=== PATIENT | female | born 1950 | race Caucasian/White ===

== ENCOUNTER 2023-01-30 04:07 | Inpatient (IN) ==
[2023-01-30] MEDS ORDERED: SODIUM CHLORIDE 0.9% 1000ML 500 ML IV ONE (04:39)
[2023-01-30 04:59] LABS: Basophils # (auto) 0.09 K/uL (0-0.2); Basophils % (auto) 0.6 %; Eosinophils # (auto) 0.01 K/uL (0-0.50); Eosinophils % (auto) 0.1 %; Hematocrit (blood only) 38.5 % (37.0-47.0); Hemoglobin 12.2 g/dl (12.0-16.0); Immature Granulocytes # (auto) 0.09 K/uL (0.01-0.20); Immature Granulocytes % (auto) 0.6 %; Lymphocytes # (auto) 0.86 K/uL (1.2-3.4); Mean Corpuscular Hemoglobin 23.2 pg (25.0-34.0); Mean Corpuscular Hgb Conc 31.7 g/dL (32.0-36.0); Mean Corpuscular Volume 73.3 fL (80.0-100.0); Mean Platelet Volume 9.9 fL (9.4-12.4); Monocytes # (auto) 1.28 K/uL (0.11-0.59); Neutrophils # (auto) 11.89 K/uL (1.40-6.50); Neutrophils % (auto) 83.7 %; Platelet Count 310 K/uL (130-400); RDW Coefficient of Variation 17.7 % (11.5-14.5); RDW Standard Deviation 43.4 fL (36.4-46.3); Red Blood Count 5.25 M/uL (4.20-5.40); White Blood Count 14.22 K/ul (4.8-10.8)
[2023-01-30 05:06] LABS: Albumin Globulin Ratio 1.3 (0.9-2); Albumin Level 3.9 gm/dl (3.4-5.0); BUN Creatinine Ratio 31.3 (10-20); Bilirubin,Total 0.6 mg/dl (0.2-1.0); Est GFR (African American) 82.8 ml/min; Est GFR (Non-African American) 71.4 ml/min; Globulin 2.9 gm/dl (2.5-4.0); Magnesium 2.1 mg/dl (1.7-2.4); Potassium 4.6 mmol/L (3.5-5.1); Total Protein 6.8 gm/dl (6.0-8.3)
[2023-01-30 05:11] LABS: Troponin I High Sensitivity 15.4 pg/ml (0-14)
--- NOTE | 2023-01-30 05:39 | Emergency Department Note ---
Impression & Plan Pleural effusion on right, DVT (deep venous thrombosis), Chest wall mass, Pulmonary emboli ED Provider Note CHIEF COMPLAINT: Shortness of breath, left arm swelling HISTORY OF PRESENT ILLNESS: This 72-year-old female patient with no significant past medical history presents to the emergency department with complaints of a right chest wall mass, shortness of breath and left arm swelling. The patient states she does not like doctors and does not see them, she does not have a primary care physician and has not seen a doctor in many years. She presents to the because she began to worry and did not feel comfortable enough with her breathing to go to sleep. She denies smoking cigarettes. She has not had a mammogram recently. She states she noticed the mass along the right chest wall several months ago and the left arm swelling just a few days ago. She denies any recent fevers. She states she has not had an appetite and has been losing weight. REVIEW OF SYSTEMS: A review of systems was performed with positives and pertinent negatives listed in the history of present illness. 10 systems were reviewed and are otherwise negative. ALLERGIES: see below MEDICATIONS: see below PMH: see below SOCIAL HISTORY: see below DDx: Breast cancer, metastatic cancer, pneumonia, viral illness, pleural effusion, PE, arterial clot, DVT among others. PHYSICAL EXAM: Vital signs reviewed. General: Chronically ill-appearing, cachectic 72-year-old female, in no significant distress. HEENT: No scleral icterus, PERRLA, neck supple. Atraumatic. Mass noted on the parietal scalp Cardiovascular: Tachycardic but regular, no extra sounds. Pulmonary: Diminished breath sounds on the right, increased work of breathing on nasal cannula oxygen Abdomen: Soft, nontender, nondistended, positive bowel sounds. Musculoskeletal: Atraumatic, left upper extremity peripheral edema, cool to touc h. 6 cm circular protuberant mass on the right anterior ribs above the breast. Left arm is cyanotic appearing, edematous from the elbow to the distal fingers, 2-3+. Thready radial pulse appreciated. Neurologic: Patient awake alert and oriented x 3, speech is clear Skin: Warm, dry, no rash. As above. EMERGENCY DEPARTMENT COURSE/MDM: This patient was evaluated and appeared to be in no significant distress. The patient was resting on nasal cannula oxygen. She does not normally wear oxygen at home. IV access was obtained and laboratory work was drawn. The patient was placed on the media monitor noted to be in a sinus tachycardia. Chest x-ray was performed and reveals a large right pleural effusion. Left arterial Doppler was performed of the upper extremity and reveals no evidence of arterial occlusion, however there is evidence of extensive DVT. CT imaging of the chest reveals a malignant pleural effusion with right chest wall mass and bilateral PEs. Heparin drip was initia dimitri. G external medical records are iven the patient's oxygen requirement, new diagnosis and pleural effusion with shortness of breath, patient's case was discussed with the hospitalist service who will evaluate the patient for admission and further management. MONITORING: An order for cardiac monitoring was placed and the patient is noted to be in a sinus tachycardia at 115 beats per minute. RADIOLOGY: CT imaging of the chest per radiology below. Ultrasound of the left upper extremity, see below EKG: To my interpretation reveals a sinus tachycardia at 103 bpm. Overall low voltage QRS, QTc of 437. No PVC, no PAC. DISPOSITION: Admission I have personally spent 40 minutes of critical care time in the direct management of this patient. This was a life/limb threatening event. This 40 minutes is in excess of all separately billable procedures. 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 Required: No Beliefs That Will Affect Care: None Current Living Situation: Alone Feels Safe at Home: Yes Assistive Devices: None Home Meds Home Medications Medication Instructions Recorded Confirmed No Known Home Medications 01/30/23 01/30/23 Results & Data (ED) Vital Signs Vital Signs - 24 hr 01/30/23 04:18 01/30/23 04:25 01/30/23 04:25 Temperature 36.4 C Temperature Source Oral Pulse Rate 116 H 115 H Pulse Rate from SpO2 Sensor Respiratory Rate 24 Respiratory Effort / Characteristics Spontaneous Labored Blood Pressure 144/94 H Blood Pressure Mean 110 Blood Pressure Position Semi-fowlers Pulse Oximetry 88 L 88 L Oxygen Delivery Method Room Air Nasal Cannula Oxygen Flow Rate 2 Sepsis Recent Fever Within 48 Hours No Sepsis New/Unexplained Change in Mental Status No Sepsis Action Taken by Nursing No Action Required Pulse Oximetry Post Tiitration 95 01/30/23 04:31 01/30/23 04:30 01/30/23 05:00 Temperature Temperature Source Pulse Rate 112 H 105 H Pulse Rate from SpO2 Sensor Respiratory Rate 20 25 H Respiratory Effort / Characteristics Blood Pressure 116/91 127/71 Blood Pressure Mean 99 89 Blood Pressure Position Pulse Oximetry 97 97 95 Oxygen Delivery Method Room Air Oxygen Flow Rate Sepsis Recent Fever Within 48 Hours Sepsis New/Unexplained Change in Mental Status Sepsis Action Taken by Nursing Pulse Oximetry Post Tiitration 01/30/23 05:30 01/30/23 07:28 01/30/23 07:30 Temperature Temperature Source Pulse Rate 96 H Pulse Rate from SpO2 Sensor 91 H Respiratory Rate 28 H Respiratory Effort / Characteristics Blood Pressure 117/80 141/90 H Blood Pressure Mean 92 117 Blood Pressure Position Pulse Oximetry 96 93 Oxygen Delivery Method Nasal Cannula Oxygen Flow Rate 2 Sepsis Recent Fever Within 48 Hours Sepsis New/Unexplained Change in Mental Status Sepsis Action Taken by Nursing Pulse Oximetry Post Tiitration 01/30/23 07:30 01/30/23 08:00 01/30/23 08:00 Temperature Temperature Source Pulse Rate 95 H 86 Pulse Rate from SpO2 Sensor 92 H 86 Respiratory Rate 28 H 21 Respiratory Effort / Characteristics Blood Pressure 130/84 Blood Pressure Mean 96 Blood Pressure Position Pulse Oximetry 92 93 Oxygen Delivery Method Nasal Cannula Nasal Cannula Oxygen Flow Rate 2 2 Sepsis Recent Fever Within 48 Hours Sepsis New/Unexplained Change in Mental Status Sepsis Action Taken by Nursing Pulse Oximetry Post Tiitration 01/30/23 08:31 01/30/23 08:31 01/30/23 09:00 Temperature Temperature Source Pulse Rate 100 H Pulse Rate from SpO2 Sensor 100 H Respiratory Rate 21 Respiratory Effort / Characteristics Blood Pressure 157/97 H 124/85 Blood Pressure Mean 119 97 Blood Pressure Position Pulse Oximetry 93 Oxygen Delivery Method Room Air Oxygen Flow Rate Sepsis Recent Fever Within 48 Hours Sepsis New/Unexplained Change in Mental Status Sepsis Action Taken by Nursing Pulse Oximetry Post Tiitration 01/30/23 09:00 Temperature Temperature Source Pulse Rate 86 Pulse Rate from SpO2 Sensor 87 Respiratory Rate 21 Respiratory Effort / Characteristics Blood Pressure Blood Pressure Mean Blood Pressure Position Pulse Oximetry 94 Oxygen Delivery Method Nasal Cannula Oxygen Flow Rate 2 Sepsis Recent Fever Within 48 Hours Sepsis New/Unexplained Change in Mental Status Sepsis Action Taken by Nursing Pulse Oximetry Post Tiitration Home Medications Current Medication List: was personally reviewed by me Laboratory Data Attestation: I reviewed the patient's lab results. 01/30/23 04:25 01/30/23 04:25 Lab Results 01/30/23 01/30/23 01/30/23 Range/Units 04:25 04:25 04:25 WBC 14.22 H (4.8-10.8) K/ul RBC 5.25 (4.20-5.40) M/uL Hgb 12.2 (12.0-16.0) g/dl Hct 38.5 (37.0-47.0) % MCV 73.3 L (80.0-100.0) fL MCH 23.2 L (25.0-34.0) pg MCHC 31.7 L (32.0-36.0) g/dL RDW Std Deviation 43.4 (36.4-46.3) fL RDW Coeff of Regina 17.7 H (11.5-14.5) % Plt Count 310 (130-400) K/uL MPV 9.9 (9.4-12.4) fL Immature Gran % (Auto) 0.6 % Neut % (Auto) 83.7 % Lymph % (Auto) 6.0 % [place] % (Auto) 9.0 % Eos % (Auto) 0.1 % Baso % (Auto) 0.6 % Neut # (Auto) 11.89 H (1.40-6.50) K/uL Lymph # (Auto) 0.86 L (1.2-3.4) K/uL [place] # (Auto) 1.28 H (0.11-0.59) K/uL Eos # (Auto) 0.01 (0-0.50) K/uL Baso # (Auto) 0.09 (0-0.2) K/uL Immature Gran # (Auto) 0.09 (0.01-0.20) K/uL PT 13.4 H (9.0-12.0) Seconds INR 1.2 H (0.9-1.1) APTT < 20.0 L (21.0-31.0) Seconds PTT Ratio 0.7 Sodium 136 (136-145) mmol/L Potassium 4.6 (3.5-5.1) mmol/L Chloride 96 L (98-107) mmol/L Carbon Dioxide 21 (21-32) mmol/L Anion Gap 19 H (3-11) BUN 26 H (6-23) mg/dl Creatinine 0.83 (0.6-1.2) mg/dl Est Cr Clr Drug Dosing 47.0 ml/min Est GFR ( Amer) 82.8 ml/min Est GFR (Non-Af Amer) 71.4 ml/min BUN/Creatinine Ratio 31.3 H (10-20) Glucose 100 H (70-99(Fasting)) mg/dl Calcium 10.0 (8.6-10.3) mg/dl Magnesium 2.1 (1.7-2.4) mg/dl Total Bilirubin 0.6 (0.2-1.0) mg/dl AST 35 (13-39) U/L ALT 22 (7-52) U/L Alkaline Phosphatase 69 (34-104) U/L Troponin I High Sens 15.4 H (0-14) pg/ml Total Protein 6.8 (6.0-8.3) gm/dl Albumin 3.9 (3.4-5.0) gm/dl Globulin 2.9 (2.5-4.0) gm/dl Albumin/Globulin Ratio 1.3 (0.9-2) SARS-CoV-2, RNA, NAAT (NEGATIVE) 01/30/23 Range/Units 05:06 WBC (4.8-10.8) K/ul RBC (4.20-5.40) M/uL Hgb (12.0-16.0) g/dl Hct (37.0-47.0) % MCV (80.0-100.0) fL MCH (25.0-34.0) pg MCHC (32.0-36.0) g/dL RDW Std Deviation (36.4-46.3) fL RDW Coeff of Regina (11.5-14.5) % Plt Count (130-400) K/uL MPV (9.4-12.4) fL Immature Gran % (Auto) % Neut % (Auto) % Lymph % (Auto) % [place] % (Auto) % Eos % (Auto) % Baso % (Auto) % Neut # (Auto) (1.40-6.50) K/uL Lymph # (Auto) (1.2-3.4) K/uL [place] # (Auto) (0.11-0.59) K/uL Eos # (Auto) (0-0.50) K/uL Baso # (Auto) (0-0.2) K/uL Immature Gran # (Auto) (0.01-0.20) K/uL PT (9.0-12.0) Seconds INR (0.9-1.1) APTT (21.0-31.0) Seconds PTT Ratio Sodium (136-145) mmol/L Potassium (3.5-5.1) mmol/L Chloride (98-107) mmol/L Carbon Dioxide (21-32) mmol/L Anion Gap (3-11) BUN (6-23) mg/dl Creatinine (0.6-1.2) mg/dl Est Cr Clr Drug Dosing ml/min Est GFR ( Amer) ml/min Est GFR (Non-Af Amer) ml/min BUN/Creatinine Ratio (10-20) Glucose (70-99(Fasting)) mg/dl Calcium (8.6-10.3) mg/dl Magnesium (1.7-2.4) mg/dl Total Bilirubin (0.2-1.0) mg/dl AST (13-39) U/L ALT (7-52) U/L Alkaline Phosphatase (34-104) U/L Troponin I High Sens (0-14) pg/ml Total Protein (6.0-8.3) gm/dl Albumin (3.4-5.0) gm/dl Globulin (2.5-4.0) gm/dl Albumin/Globulin Ratio (0.9-2) SARS-CoV-2, RNA, NAAT NEGATIVE (NEGATIVE) Administered Medications Sodium Chloride (Nss 1000ml) 1,000 mls @ 125 mls/hr IV .Q8H LEA Stop: 03/01/23 04:44 Last Infusion: 01/30/23 15:05 Dose: 0 mls/hr Documented By: Admin: 01/30/23 14:20 Dose: 125 mls/hr Documented By: Infusion: 01/30/23 14:20 Dose: 125 mls/hr Documented By: Admin: 01/30/23 07:32 Dose: 125 mls/hr Documented By: EARNEST Heparin Sodium/Dextrose (Heparin Sodium/Dextrose) 25,000 units in 500 mls @ 17 mls/hr IV .Q24H LEA; Protocol Stop: 02/28/23 15:14 Last Admin: 01/30/23 17:28 Dose: 600 units/hr, 12 mls/hr Documented By: NANNETTE Co-signed By: RAFFAELE Discontinued Medications Heparin Sodium (Porcine) (Heparin Sod (Porcine) 1000 Unit/Ml) 1 units IV NOW ONE Stop: 01/30/23 07:17 Last Admin: 01/30/23 07:36 Dose: 4,000 units Documented By: EARNEST Co-signed By: ANDREWS Heparin Sodium/Dextrose (Heparin Iv Adult Wt-Based Standard With Bolus Protocol) 1 each IV NOW STA; Protocol Stop: 01/30/23 07:02 Last Admin: 01/30/23 07:32 Dose: 1 each Documented By: EARNEST Sodium Chloride (Nss 1000ml) 500 mls @ 999 mls/hr IV .Q31M ONE Stop: 01/30/23 05:09 Last Infusion: 01/30/23 07:27 Dose: 0 mls/hr Documented By: Admin: 01/30/23 05:01 Dose: 999 mls/hr Documented By: XENA Heparin Sodium/Dextrose (Heparin Sodium/Dextrose) 25,000 units in 500 mls @ 17 mls/hr IV .Q24H LEA; Protocol Stop: 03/01/23 07:29 Last Titration: 01/30/23 17:28 Dose: 0 units/hr, 0 mls/hr Documented By: NANNETTE Co-signed By: RAFFAELE Titration: 01/30/23 15:23 Dose: 0 units/hr, 0 mls/hr Documented By: NANNETTE Co-signed By: ANTHONY Admin: 01/30/23 07:36 Dose: 850 units/hr, 17 mls/hr Documented By: EARNEST Co-signed By: ANDREWS Ioversol (Ioversol 350 Mg 125ml Prefilled Syringe) 125 ml IV ONCE ONE Stop: 01/30/23 06:02 Last Admin: 01/30/23 06:01 Dose: 116 ml Documented By: ARVIND Imaging Data Radiologist's Impression: Chest X-Ray 01/30/23 04:31 XR chest 1V portable CLINICAL HISTORY: Dyspnea. COMPARISON STUDY: No previous studies for comparison. FINDINGS: There is complete opacification of the right hemithorax with as sociated leftward deviation of the mediastinal structures. No consolidation within the left lung is present. There is no left pleural effusion. No pneumothorax is present. IMPRESSION: Complete opacification of the right hemithorax with associated leftward deviation of mediastinal structures. The findings suggest a large right pleural effusion with right lung atelectasis. ACT 112: Negative or not required by law. Electronically signed by: Mahendra Borjas M.D. 01/30/2023 7:33 AM Chest CTA 01/30/23 04:38 CT ANGIOGRAPHY OF THE CHEST, PULMONARY EMBOLUS PROTOCOL CLINICAL HISTORY: Shortness of breath. Evaluate for pulmonary embolus. COMPARISON STUDY: Chest radiograph performed earlier today. TECHNIQUE: Following IV administration of 116 mL of Optiray, helical axial images of the chest were obtained utilizing the pulmonary embolus protocol. Maximal intensity projections and sagittal and coronal reformats were viewed on an independent 3D workstation. IV contrast was administered without complication. Automated exposure control was utilized for the study. A dose lowering technique was utilized adhering to the principles of ALARA. CT DOSE: 265.75 mGy.cm FINDINGS: Note is made of several segmental pulmonary emboli within the left lung. This exam is compromised by respiratory motion. No central pulmonary emboli are identified. Note is made of a large right pleural effusion which occupies the majority of the right hemithorax. There is associated right lung collapse and leftward deviation of mediastinal structures. A rind of enhancing right pleural soft tissue is present. Conglomerate enhancing soft tissue extends through the right anterior chest wall. This conglomerate mass measures approximately 9.5 x 5.3 cm and encases the bilateral internal mammary arteries. Enhancing soft tissue extends into several right-sided neural foramen. There is no associated bone destruction. Note is also made of extensive lower cervical, thoracic and upper abdominal lymphadenopathy. Index left supraclavicular node on image 205 of 221 measures 2.3 x 1.4 cm. A right retropectoral node on image 174 measures 3.1 x 2.2 cm. Right axillary node on image 154 measures 2.7 x 1.8 cm. Left para-aortic lymph node adjacent to the proximal abdominal aorta on image 20 measures 2.4 x 1.6 cm. Retrocrural/periaortic conglomerate adenopathy is also present. No consolidation within the left lung is present. There are no suspicious left lung nodules. No suspicious osseous lesions are identified. IMPRESSION: 1. Several segmental pulmonary emboli within the left lung. 2. Very large right pleural effusion which occupies the majority of the right hemithorax with associated right lung collapse and leftward deviation of mediastinal structures. Rind of enhancing right pleural soft tissue consistent with a neoplastic process with malignant effusion. Enhancing infiltrative soft tissue extends through the right anterior chest wall. Extensive lower cervical, thoracic and upper mediastinal lymphadenopathy. The findings represent a neoplastic process and lymphoma is a primary consideration. However, other etiologies such as metastatic lung cancer, metastatic disease of unknown primary or less likely mesothelioma can't be excluded. ACT 112: Positive. There are findings on this exam that require communication between the performing entity and the patient following Patient Test Result Information Act ([place] Act 112) guidelines. Electronically signed by: Mahendra Borjas M.D. 01/30/2023 6:55 AM Duplex Scan Upper Extremity Artery 01/30/23 04:38 LEFT UPPER EXTREMITY DOPPLER ULTRASOUND CLINICAL HISTORY: cool, swollen, ? arterial occlusion COMPARISON STUDY: No previous studies for comparison. TECHNIQUE: Sonography of the arterial system of the left upper extremity was performed. FINDINGS: Pathologic left supraclavicular lymphadenopathy is incidentally noted. Index node measures 2.7 x 2.3 x 1.3 cm. Incidental note is also made of extensive deep venous thrombus within the left internal jugular, subclavian, brachial and radial veins. No elevated velocities within the arterial systems of the left upper extremity are noted. The arteries are patent within the left upper extremity. Left upper extremity edema is present. IMPRESSION: 1. Patent left upper extremity arteries. No elevated velocities. 2. Extensive deep venous thrombus within the left internal jugular, subclavian, brachial and radial veins. 3. Pathologic left supraclavicular lymphadenopathy. This is consistent with a neoplastic process and could reflect lymphoma or metastatic disease. ACT 112: Negative or not required by law. Electronically signed by: Mahendra Borjas M.D. 01/30/2023 7:10 AM Discharge Plan Visit Data Chief Complaint: Shortness of Breath/Dyspnea Stated Complaint: Swelling L Arm, SOB ED Provider: Traci Woodard Discharge Problem: Pleural effusion on right, DVT (deep venous thrombosis), Chest wall mass, Pulmonary emboli Patient Disposition: Admitted As Inpatient Discharge Instructions Interventions: ED Discharge Assessment Last Done: 01/30/23 12:57
[2023-01-30] MEDS ORDERED: IOVERSOL 350 MG 125mL Prefilled Syringe IV ONE (06:01)
--- NOTE | 2023-01-30 06:57 | CT Scan Report ---
CT ANGIOGRAPHY OF THE CHEST, PULMONARY EMBOLUS PROTOCOL CLINICAL HISTORY: Shortness of breath. Evaluate for pulmonary embolus. COMPARISON STUDY: Chest radiograph performed earlier today. TECHNIQUE: Following IV administration of 116 mL of Optiray, helical axial images of the chest were o btained utilizing the pulmonary embolus protocol. Maximal intensity projections and sagittal and cor onal reformats were viewed on an independent 3D workstation. IV contrast was administered without co mplication. Automated exposure control was utilized for the study. A dose lowering technique was ut ilized adhering to the principles of ALARA. CT DOSE: 265.75 mGy.cm FINDINGS: Note is made of several segmental pulmonary emboli within the left lung. This exam is comp romised by respiratory motion. No central pulmonary emboli are identified. Note is made of a large ri ght pleural effusion which occupies the majority of the right hemithorax. There is associated right l rajesh collapse and leftward deviation of mediastinal structures. A rind of enhancing right pleural soft tissue is present. Conglomerate enhancing soft tissue extends through the right anterior chest wall. This conglomerate mass measures approximately 9.5 x 5.3 cm and encases the bilateral internal mammar y arteries. Enhancing soft tissue extends into several right-sided neural foramen. There is no associ ated bone destruction. Note is also made of extensive lower cervical, thoracic and upper abdominal ly mphadenopathy. Index left supraclavicular node on image 205 of 221 measures 2.3 x 1.4 cm. A right ret ropectoral node on image 174 measures 3.1 x 2.2 cm. Right axillary node on image 154 measures 2.7 x 1 .8 cm. Left para-aortic lymph node adjacent to the proximal abdominal aorta on image 20 measures 2.4 x 1.6 cm. Retrocrural/periaortic conglomerate adenopathy is also present. No consolidation within the left lung is present. There are no suspicious left lung nodules. No suspicious osseous lesions are i dentified. IMPRESSION: 1. Several segmental pulmonary emboli within the left lung. 2. Very large right pleural effusion which occupies the majority of the right hemithorax with associa dimitri right lung collapse and leftward deviation of mediastinal structures. Rind of enhancing right pleural soft tissue consistent with a neoplastic process with malignant effus ion. Enhancing infiltrative soft tissue extends through the right anterior chest wall. Extensive lowe r cervical, thoracic and upper mediastinal lymphadenopathy. The findings represent a neoplastic proce ss and lymphoma is a primary consideration. However, other etiologies such as metastatic lung cancer, metastatic disease of unknown primary or less likely mesothelioma can't be excluded. ACT 112: Positive. There are findings on this exam that require communication between the performing entity and the patient following Patient Test Result Information Act ([place] Act 112) guidelines. Electronically signed by: Mahendra Borjas M.D. 01/30/2023 6:55 AM
[2023-01-30] MEDS ORDERED: Heparin IV Adult Wt-Based Standard WITH Bolus Protocol IV STA (07:01)
--- NOTE | 2023-01-30 07:11 | Ultrasound Report ---
LEFT UPPER EXTREMITY DOPPLER ULTRASOUND CLINICAL HISTORY: cool, swollen, ? arterial occlusion COMPARISON STUDY: No previous studies for comparison. TECHNIQUE: Sonography of the arterial system of the left upper extremity was performed. FINDINGS: Pathologic left supraclavicular lymphadenopathy is incidentally noted. Index node measures 2.7 x 2.3 x 1.3 cm. Incidental note is also made of extensive deep venous thrombus within the left in ternal jugular, subclavian, brachial and radial veins. No elevated velocities within the arterial sys tems of the left upper extremity are noted. The arteries are patent within the left upper extremity. Left upper extremity edema is present. IMPRESSION: 1. Patent left upper extremity arteries. No elevated velocities. 2. Extensive deep venous thrombus within the left internal jugular, subclavian, brachial and radial v eins. 3. Pathologic left supraclavicular lymphadenopathy. This is consistent with a neoplastic process and could reflect lymphoma or metastatic disease. ACT 112: Negative or not required by law. Electronically signed by: Mahendra Borjas M.D. 01/30/2023 7:10 AM
[2023-01-30] MEDS ORDERED: HEPARIN SOD (PORCINE) 1000 UNIT/ML IV ONE (07:16)
[2023-01-30 07:29] LABS: INR 1.2 (0.9-1.1); Partial Thromboplastin Ratio 0.7; Prothrombin Time 13.4 Seconds (9.0-12.0)
[2023-01-30] MEDS ORDERED: HEPARIN SODIUM/DEXTROSE 25,000 UNITS/500 ML BAG IV SCH (07:30)
[2023-01-30] MEDS: SODIUM CHLORIDE 0.9% 1000ML 1,000 ML IV SCH ×3 (07:32→19:24)
--- NOTE | 2023-01-30 07:35 | XRay Report ---
XR chest 1V portable CLINICAL HISTORY: Dyspnea. COMPARISON STUDY: No previous studies for comparison. FINDINGS: There is complete opacification of the right hemithorax with associated leftward deviation of the mediastinal structures. No consolidation within the left lung is present. There is no left ple ural effusion. No pneumothorax is present. IMPRESSION: Complete opacification of the right hemithorax with associated leftward deviation of med iastinal structures. The findings suggest a large right pleural effusion with right lung atelectasis. ACT 112: Negative or not required by law. Electronically signed by: Mahendra Borjas M.D. 01/30/2023 7:33 AM
[2023-01-30 07:41] LABS: Partial Thromboplastin Time < 20.0 Seconds (21.0-31.0)
--- NOTE | 2023-01-30 09:00 | History & Physical Report ---
Date of Service January 30, 2023 Assessment & Plan (1) Shortness of breath: (2) Pleural effusion on right: (3) DVT (deep venous thrombosis): (4) Chest wall mass: (5) Pulmonary emboli: (6) Elevated troponin: (7) Constipation: Plan 1) Shortness of breath: >2 weeks duration, progressive. CXR and Chest CT on admission show significant right sided pleural effusion with left shift of mediastinal structures. Per radiology, effusion likely malignancy-related. CT also showed right chest wall mass, several left sided PEs, and significant pathologic lymphadenopathy. Per radiology, lymphoma most likely but mets from other primary cancer vs mesothelioma cannot be ruled out. Concern for pneumonia low at this time given patient's lack of fever. -Pt on high flow oxygen via NC -Heparin drip started at -Pulmonology consulted, thoracentesis to be done tomorrow -US guided biopsy to be performed by IR tomorrow 2) Pleural effusion on right: per radiology, likely malignancy related -Pulm consulted, thoracentesis to be performed tomorrow 3) DVT in left arm: Venous Doppler in ED showed extensive thrombus within the left internal jugular, subclavian, brachial and radial veins. -Heparin started as above 4) Chest wall mass: noted on physical exam, CXR, and CT. Per radiology, likely malignant. -As above 5) Pulmonary emboli: Left sided pulmonary emboli noted on CT -Heparin started as above -Oxygen started as above 6) Elevated troponin: Patient had slightly elevated troponin (15.4) in ED. Demand ischemia vs PE vs ID. EKG showed sinus tach with low voltage QRS but could not rule out anterior infarct of any age. -Repeat trop. today 17.7 7) Constipation: Patient has not had a "normal" bowel movement in 2 weeks. Reports small volumes of loose stool consistent with overflow. Constipation vs obstruction. No abdominal pain or distension is reassuring for obstruction, but given patient's family history of colon cancer, lack of prior colonoscopies, and current unidentified malignancy, concern remains. -Miralax ordered -If patient does not have a bowel movement, consider KUB or CT abd to evaluate for obstruction -Recommend outpatient colonoscopy History of Present Illness Chief Complaint: Shortness of Breath Primary Care Provider: [facility] PCP Mary is a 72 year old woman without regular medical care who presented to the ED last night with concerns of shortness of breath and left arm swelling. She first noticed the shortness of breath several weeks ago in association with a new mass/swelling on her right anterior chest. Her shortness of breath worsened over the last few weeks. On Sunday she first noticed left arm and hand swelling. After two days of persistent swelling and worsening shortness of breath, she came to the ED. The shortness of breath is worst with activity. It is not associated with any chest pain, chest pressure. The mass on her chest is not painful. She thinks that it has been increasing in size, but she is not sure. The swelling of her left arm and hand is only painful when she moves or bends it. She has not had any fevers, aches, or chills. She has had recent unintentional weight loss. She is unsure how much weight as she has not weighed herself, but she did notice her clothes have become too loose. She has had poor appetite. She has not had a "normal" bowel movement in close to two weeks. She describes occasional small amounts of loose stool, but no large volumes. She has a remote smoking history (quit 15-20 years ago) of <1/2 a pack per day. She has no known health conditions and takes no medications aside from vitamin D and fish oil supplements, but says that she does not regularly see any doctors and cannot remember the last time she received any medical treatment. She has never been treated by the ED or been hospitalized before. She has a relevant family history of colon cancer in her sister, diagnosed at age 65. She has never had a colonoscopy. Home Medications Medication Instructions Recorded Confirmed Type No Known Home Medications 01/30/23 01/30/23 History Past Med/Surg History Medical History (Updated 01/30/23 @ 11:38 by Jessica Root) Pleural effusion on right Family History Sister Cancer Social History Smoking Status: Former smoker Preferred Language: Khmer Feels Safe at Home: Yes Review of Systems Review of Systems: Reviewed and negative except as stated in HPI Physical Exam Physical Exam: General: Chronically ill-appearing, cachectic 72-year-old female, in no significant distress. HEENT: No scleral icterus, PERRLA, neck supple. Atraumatic. Cardiovascular: Tachycardic but regular, no extra sounds. No pedal edema, no calf tenderness. Pulmonary: Diminished breath sounds on the right, increased work of breathing on nasal cannula oxygen Abdomen: Soft, nontender, nondistended, positive bowel sounds. Musculoskeletal: Atraumatic, no pedal edema. 6 cm nontender circular protuberant mass on the right anterior ribs above the breast. Left arm is cyanotic appearing, edematous from the elbow to the distal fingers, 2-3+.Radial pulse appreciated. Neurologic: Patient awake alert and oriented x 3, speech is clear Skin: Warm, dry, no rash Results & Data Results & Data Vital Signs (Past 12 Hours) Vital Signs Temp Pulse Resp BP Pulse Ox O2 Del Method O2 Flow Rate 01/30/23 08:31 100 H 21 93 Room Air 01/30/23 08:31 157/97 H 01/30/23 08:00 86 21 93 Nasal Cannula 2 01/30/23 08:00 130/84 01/30/23 07:30 95 H 28 H 92 Nasal Cannula 2 01/30/23 07:30 141/90 H 01/30/23 07:28 93 Nasal Cannula 2 01/30/23 05:30 96 H 28 H 117/80 96 01/30/23 05:00 105 H 25 H 127/71 95 01/30/23 04:30 112 H 20 116/91 97 01/30/23 04:31 97 Room Air 01/30/23 04:25 88 L Nasal Cannula 2 01/30/23 04:25 36.4 C 115 H 24 144/94 H 88 L Room Air 01/30/23 04:18 116 H Code Status & VTE Plan Code Status Full Code. Of note, patient expressed strong desire not to remain intubated and ventilated for longer than two weeks. Supervising Physician Co-Signing Physician Notes I personally examined the patient and verified all perera points of history and exam, discussed case, and agree with decision making with Jose Root MS4, and Dr Salo Vallecillo of [email or web address] by the time I see her with supportive care. Appreciate pulmonary input. Vitals noted, in general she is awake and alert pleasant no distress. HEENT normocephalic atraumatic mucous membranes moist. Breathing unlabored no accessory muscle use good effort. Skin shows no rashes no pallor or icterus. CT scanboth report and images reviewed, chest x-ray noted, labs noted Doppler noted presumed metastatic malignancy with subsequent effusion and venous thromboembolic diseasedyspnea/hypoxia/respiratory failure appears to be really due to the enormous pleural effusion collapsing the entirety of her right lung. She has small PEsbut I really doubt there a major player in the situation. Appreciate pulmonary input and anticipate thoracentesis. Agree with biopsy of chest wall mass as well as thoracentesis cytology. Discussed with patient that depending on what type of cancer this turns out to be, treatment options may be quite broad and available. Heparin drip for now given VTE but also need for proceduresanticipate transition to DOAC once procedures are done. Will need to be set up with PCP as well as pulmonary and oncology. Otherwise as above Resident Activity Tracking Resident Involvement: Resident Care Provided Care Provided: Adult Hospital Medicine
[2023-01-30] MEDS ORDERED: POLYETHYLENE (MIRALAX) 17 GM PACK PO PRN (09:01)
[2023-01-30] MEDS ORDERED: ACETAMINOPHEN 325 MG TAB PO PRN (09:01)
[2023-01-30] MEDS ORDERED: ONDANSETRON INJ 2 MG/ML 2 ML VIAL IV PRN (09:01)
--- NOTE | 2023-01-30 11:28 | Pulmonary Consultation ---
Patint seen and examined. Agree with below assessment and plan. Ms. Phan is a 72 F who has not seen a physician in recent memory who presents to the ED on 01/30/2023 with a 2-4 week hx of progressive dyspnea with constitutional symptoms and an enlarging right chest wall mass. Admissions CT scan demonstrated scattered subsegmenal PEs with a right UE DVT, a 10 cm right chest wall mass and complete opacification of the right hemithorax with associated lung atelectasis. Clinically she is breathing comfortably on 2L nc oxygen. She appears cachetic with temporal wasting. She says that she has no family and lives alone. Plan: -- Obtain echo, heparin gtt -- US guided biopsy of mass / supraclavicular node -- Plan for diagnostic / therapeutic right thoracentesis -- Oncology and palliative care consults We will follow with you. Thank you for the consult Date of Consultation January 30, 2023 Assessment & Plan (1) Pleural effusion on right: (2) Shortness of breath: (3) Pulmonary emboli: (4) DVT (deep venous thrombosis): (5) Chest wall mass: Plan IMPRESSION: 72-year-old female presenting to the emergency department with shortness of breath and hypoxia requiring 2 L nasal cannula who was found to have a large RIGHT-sided pleural effusion with concerns for infiltrative RIGHT- sided chest wall mass, pulmonary emboli, and extensive LEFT upper extremity DVT. RECOMMENDATIONS: 1. RIGHT-sided pleural effusion - Concerning for malignant pleural effusion in the setting of new RIGHT-sided chest wall mass. With compression of the RIGHT- sided lung and associated shortness of breath. Thankfully, the patient is only requiring 2 L nasal cannula at this time and does not appear to be hemodynamically unstable at this point. Patient would likely benefit from diagnostic and therapeutic thoracentesis to evaluate pleural fluid which may provide staging given our concern for primary source of malignancy. This was reviewed with the patient. She will need to be off of the heparin drip for 2 hours prior to intervention. Pleural fluid will be sent for pathology as well as cytology and Gram staining. There may be benefit to Pleurx catheter in the patient's future depending on reaccumulation after thoracentesis. This will be reviewed with the patient is a later time pending responsiveness to thoracentesis. 2. Shortness of breath - Likely multifactorial related to the patient's large RIGHT-sided pleural effusion as well as associated LEFT-sided pulmonary emboli. Again, thankfully, the patient is not severely symptomatic at this point. We will perform thoracentesis as discussed above and assess patient's responsiveness moving forward. 3. Pulmonary emboli - Difficult to assess the RIGHT-sided lung structure secondary to large effusion. Small subsegmental PEs appreciated in the LEFT- sided lung field. CT evaluation demonstrates concerns for possible cardiac strain. With the associated bump in her troponin, will order formal echocardiogram for evaluation of degree of RIGHT-sided heart strain. Agree with heparin drip at this time. 4. DVT - Patient with extensive DVT of the LEFT upper extremity. Likely related to the patient's underlying coagulopathy with presumed malignancy. 5. Chest wall mass - With infiltrative component to the RIGHT-sided anterior chest wall. Patient would benefit from core biopsy for definitive diagnosis. This, in combination with pleural cytology/pathology will help for staging with the patient moving forward. Would consult oncology sooner rather than later. Given the patient's circumstances and lack of support as well as need for goals of care decision making moving forward, engagement with palliative care would likely be helpful for this patient as well. Thank you for allowing us to participate in the care of this patient. We will continue to follow along during her hospitalization. History of Present Illness Reason for Consultation: Pleural Effusion Requesting Physician: Dr. Leong History of Present Illness Patient is a 72-year-old female who does not undergo routine medical care who presented to the emergency department overnight with increasing shortness of breath over the last few days. The patient notes that she had experienced a mass to the RIGHT upper chest wall which has been increased in size over the last few weeks. She denies any pain or discomfort in this area. Additionally, she has been noticing progressive shortness of breath. She developed swelling to the LEFT upper extremity which eventually prompted her visit to the emergency department. She was noted to have an extensive LEFT upper extremity DVT as well as multiple subsegmental pulmonary emboli, a large RIGHT-sided pleural effusion, and concerns for erosive chest mass on the RIGHT-sided chest wall. She was started on a heparin drip pulmonary medicine was consulted for evaluation of pleural effusion. Upon evaluation in the emergency department, the patient is awake, alert, and oriented. She denies routine medical care and is unable to quantify the last time she is seen a provider. She states that she lives alone and previously had her sister who within the last few years. She denies any family locally. Patient reports that she has had a decreased appetite and subjective loss of weight recently. She denies any other beta symptoms. She reports no personal history of malignancy. Her sister did pass away from colon cancer. She reports that she had a transient history of smoking several years ago and is otherwise a non-smoker. Other than shortness of breath, she offers no complaints of pain or other concerns at this time. Home Medications Medication Instructions Recorded Confirmed Type No Known Home Medications 01/30/23 01/30/23 History Patient History Medical History (Updated 01/30/23 @ 11:23 by David Madsen PA-C) Pleural effusion on right Family History Sister Cancer Social History Smoking Status: Former smoker Preferred Language: Syriac Feels Safe at Home: Yes Review of Systems Review of Systems: A complete 10 point review of systems was reviewed with the patient with pertinent positives and negatives as per history of present illness. All else were negative. Physical Exam Physical Exam: VITAL SIGNS - Vital signs and nursing notes were reviewed. GENERAL - 72-year-old female appearing her stated age who is in no acute distress. Communicates well with provider and answers questions appropriately. SKIN - Without rashes. NOSE - Midline and without cyanosis. No epistaxis or purulent drainage noted. MOUTH/OROPHARYNX - Without perioral cyanosis. NECK - Neck with FROM. Supple to palpation. No palpable lymphadenopathy noted. LUNGS - Chest wall evaluation demonstrates a large, ~8cm mass to the RIGHT upper chest wall. Nontender to palpation. Nonmobile. No erythema or induration noted. Auscultation reveals absent breath sounds on the RIGHT with clear breath sounds without wheezes, rales, or rhonchi appreciated on the LEFT. CARDIAC - RRR with S1/S2. No murmur, rubs, or gallops appreciated. ABDOMEN - Abdominal inspection demonstrates a flat abdomen. BS normoactive all four quadrants. No tenderness, palpable masses, or ascites noted. EXTREMITIES - Moderate edema noted to the LEFT upper extremity. No peripheral cyanosis. No pretibial edema present. +3/5 radial palpated throughout. PSYCH - A&Ox3 and cooperates fully with examiner. Pt is very pleasant and interacts well with examiner. Results & Data Results & Data Vital Signs (Past 12 Hours) Vital Signs Temp Pulse Resp BP Pulse Ox O2 Del Method O2 Flow Rate 01/30/23 10:30 89 23 93 Nasal Cannula 2 01/30/23 10:30 126/78 01/30/23 10:00 90 24 93 Nasal Cannula 2 01/30/23 10:00 130/84 01/30/23 09:30 92 H 23 95 Nasal Cannula 2 01/30/23 09:30 147/91 H 01/30/23 09:00 86 21 94 Nasal Cannula 2 01/30/23 09:00 124/85 01/30/23 08:31 100 H 21 93 Room Air 01/30/23 08:31 157/97 H 01/30/23 08:00 86 21 93 Nasal Cannula 2 01/30/23 08:00 130/84 01/30/23 07:30 95 H 28 H 92 Nasal Cannula 2 01/30/23 07:30 141/90 H 01/30/23 07:28 93 Nasal Cannula 2 01/30/23 05:30 96 H 28 H 117/80 96 01/30/23 05:00 105 H 25 H 127/71 95 01/30/23 04:30 112 H 20 116/91 97 01/30/23 04:31 97 Room Air 01/30/23 04:25 88 L Nasal Cannula 2 01/30/23 04:25 36.4 C 115 H 24 144/94 H 88 L Room Air 01/30/23 04:18 116 H PG Care Time/CCT Total # of Minutes Spent Total Time Spent with Patient: Total time spent is greater than 50% in coordination of care (as documented) at patient's floor/unit and/or counseling patient: Coding Level of Care Code 58720 INT INP/OBS CARE 3/75MIN Diagnoses Pleural effusion on right J90 Shortness of breath R06.02 Pulmonary emboli I26.99 DVT (deep venous thrombosis) I82.409 Chest wall mass R22.2
[2023-01-30 15:07] LABS: Partial Thromboplastin Ratio > 4.9
[2023-01-30 15:22] LABS: Partial Thromboplastin Time > 139.0 Seconds (21.0-31.0)
[2023-01-30 17:12] LABS: Partial Thromboplastin Ratio 2.7
[2023-01-30 17:17] LABS: Partial Thromboplastin Time 75.8 Seconds (21.0-31.0)
--- NOTE | 2023-01-30 17:23 | Billing Data ---
Date of Service January 30, 2023 Coding Level of Care Code 36981 INT INP/OBS CARE
[2023-01-30] MEDS: HEPARIN SODIUM/DEXTROSE 25,000 UNITS/500 ML BAG IV SCH (17:28)
--- NOTE | 2023-01-30 17:53 | XCELERA ---
[id number]
[2023-01-30 23:49] LABS: Partial Thromboplastin Ratio 1.6
[2023-01-31 00:20] LABS: Partial Thromboplastin Time 44.7 Seconds (21.0-31.0)
[2023-01-31] MEDS: SODIUM CHLORIDE 0.9% 1000ML 1,000 ML IV SCH (03:03)
[2023-01-31 05:21] LABS: Appearance Urine Clear (Clear); Bacteria Urine Automated Negative (Negative); Bilirubin Urine Negative (Negative); Blood Urine Trace (Negative); Color Urine Yellow; Epithelial Cell Urine Auto 0-5 /lpf (0-5); Glucose Urine UA Negative (Negative); Ketones Urine 1+ (Negative); Leukocyte Esterase Urine Negative (Negative); Nitrite Urine Negative (Negative); Protein Urine Trace (Negative); Specific Gravity Urine > 1.045 (1.000-1.030); Urobilinogen Urine Negative (Negative); pH Urine 5.5 (4.5-7.5)
[2023-01-31 07:10] LABS: Basophils # (auto) 0.08 K/uL (0-0.2); Basophils % (auto) 0.8 %; Eosinophils # (auto) 0.08 K/uL (0-0.50); Eosinophils % (auto) 0.8 %; Hematocrit (blood only) 36.4 % (37.0-47.0); Hemoglobin 11.1 g/dl (12.0-16.0); Immature Granulocytes # (auto) 0.05 K/uL (0.01-0.20); Immature Granulocytes % (auto) 0.5 %; Lymphocytes # (auto) 0.53 K/uL (1.2-3.4); Lymphocytes % (auto) 5.4 %; Mean Corpuscular Hemoglobin 23.2 pg (25.0-34.0); Mean Corpuscular Hgb Conc 30.5 g/dL (32.0-36.0); Mean Corpuscular Volume 76.2 fL (80.0-100.0); Mean Platelet Volume 9.8 fL (9.4-12.4); Monocytes # (auto) 0.84 K/uL (0.11-0.59); Monocytes % (auto) 8.5 %; Neutrophils # (auto) 8.32 K/uL (1.40-6.50); Platelet Count 264 K/uL (130-400); RDW Coefficient of Variation 17.4 % (11.5-14.5); RDW Standard Deviation 45.8 fL (36.4-46.3); Red Blood Count 4.78 M/uL (4.20-5.40)
[2023-01-31 07:21] LABS: BUN Creatinine Ratio 20.9 (10-20); Calcium 8.6 mg/dl (8.6-10.3); Chol HDL Ratio 4.2 (0-5); Creatinine Clr Calc Pharmacy 58.2 ml/min; Est GFR (African American) 103.2 ml/min; Est GFR (Non-African American) 89.1 ml/min; Potassium 3.9 mmol/L (3.5-5.1)
--- NOTE | 2023-01-31 07:25 | Consultation ---
Date of Consultation January 31, 2023 Assessment & Plan (1) Chest wall mass: Rapid onset anterior chest wall mass in a patient with a remote history of smoking, mild family history of colon cancer, but no particular toxic exposures. She does seem to describe this is occurring over a less than 2-month period. Aggressive process in a patient with poor performance status, difficult prognosis but histologic definition will certainly be important to help frame our prognostication and discussion as to the options and potential efficacy (or unfortunately perhaps lack thereof) of therapeutic intervention. If this were a lymphoma, small cell lung cancer, or breast cancer there might be some expectation of response to systemic therapy though even in those more "treatable" malignancies the degree of tumor burden and the negative impact upon her overall functionality are concerning for her ability to truly tolerate aggressively dosed treatment. 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 Heparin is certainly an appropriate initial intervention to allow flexibility for interruption for needed biopsies/thoracentesis. Anticipate indefinite need for anticoagulation Plan Very aggressive malignant process. Will be important to at least try to define histologically but depending on that histology and given her poor performance status we may have limited practical ability to intervene beyond palliative intervention. Radiation therapy may become a consideration. Await cytology from potential thoracentesis to determine if we need to pursue a more formal core biopsy of the lung mass. She does not have specific neurologic symptomatology but MRI of the brain will likely be worthwhile especially if we diagnose a primary lung malignancy Anticoagulation obviously indicated Very difficult social circumstances, social work referral and probable exploration of posthospitalization placement will be needed Palliative care consultation will likely be an important part of overall framing of goals of care and management of symptomatology We will follow-up when we have a more specific diagnosis History of Present Illness Reason for Consultation: Chest wall mass and a picture of probable metastatic malignancy accompanied by extensive pulmonary embolism and left upper extremity vascular thrombosis Attending Physician: Abdullahi Jones, DO History of Present Illness Please see more comprehensive database from hospice admission note particularly the very thorough pulmonary consultation. Remote history of smoking less than 1/2 pack/day. 15 to 20 years ago. 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 Has been generally well until just the last couple of months when she has had some moderate weight loss and increasing shortness of breath presenting more acutely with shortness of breath and left upper extremity swelling. Imaging shows a large chest wall mass, opacification of right hemithorax, pulmonary emboli and extensive thrombosis. See below Home Medications Medication Instructions Recorded Confirmed Type No Known Home Medications 01/30/23 01/30/23 History Patient History Medical History (Updated 01/30/23 @ 18:32 by Traci Woodard MD) Pleural effusion on right Family History Sister Cancer Social History Smoking Status: Former smoker Hx Alcohol Use: Yes Hx Substance Use: No Preferred Language: Latvian Communication Ability: Effective Food Cashier Required: No Beliefs That Will Affect Care: None Current Living Situation: Alone Feels Safe at Home: Yes Assistive Devices: None Physical Exam Physical Exam: VSS ECOG 3/4 Alert, somewhat anxious, sitting in bed but not in severe immediate distress HEENT does show poor dentition Chest wall shows a 10 cm rounded subdermal mass on the right side which is completely fixed and hard. This seems to be above and separate from the breast. Absent breath sounds on the right side but she is not currently tachypneic or using accessory muscles of respiration, she is wearing nasal oxygen Swelling and compression tenderness of the left upper extremity but peripheral pulses intact as is capillary refill distally Abdominal examination seems benign Neurologically she is anxious but without focal neurological changes. Alert, fluent, seems to have adequate cognitive capacity for medical decision making Results & Data Vital Signs (Past 12 Hours) Vital Signs Temp Pulse Pulse Resp BP Pulse Ox O2 Del Method 01/31/23 03:17 36.5 C 89 18 116/71 94 Nasal Cannula 01/31/23 00:00 97 H 01/30/23 23:04 36.6 C 93 H 16 110/73 92 Nasal Cannula 01/30/23 21:00 Nasal Cannula 01/30/23 19:50 36.6 C 99 H 20 113/68 94 Nasal Cannula O2 Flow Rate 01/31/23 03:17 2 01/31/23 00:00 01/30/23 23:04 2 01/30/23 21:00 2 01/30/23 19:50 2 Laboratory Results Laboratory Results - last 24 hr 01/30/23 01/30/23 01/30/23 04:25 10:29 13:54 WBC RBC Hgb Hct MCV MCH MCHC RDW Std Deviation RDW Coeff of Regina Plt Count MPV Immature Gran % (Auto) Neut % (Auto) Lymph % (Auto) Vernon % (Auto) Eos % (Auto) Baso % (Auto) Neut # (Auto) Lymph # (Auto) Vernon # (Auto) Eos # (Auto) Baso # (Auto) Immature Gran # (Auto) PT 13.4 H INR 1.2 H APTT < 20.0 L > 139.0 H* PTT Ratio 0.7 > 4.9 Sodium Potassium Chloride Carbon Dioxide Anion Gap BUN Creatinine Est Cr Clr Drug Dosing Est GFR ( Amer) Est GFR (Non-Af Amer) BUN/Creatinine Ratio Glucose Estimat Average Glucose Hemoglobin A1c Calcium Troponin I High Sens 17.7 H Triglycerides Cholesterol LDL Cholesterol, Calc VLDL Cholesterol, Calc HDL Cholesterol Cholesterol/HDL Ratio Urine Color Urine Appearance Urine pH Ur Specific [place] Urine Protein Urine Glucose (UA) Urine Ketones Urine Blood Urine Nitrite Urine Bilirubin Urine Urobilinogen Ur Leukocyte Esterase Urine WBC (Auto) Urine RBC (Auto) U Hyaline Cast (Auto) U Epithel Cells (Auto) Urine Bacteria (Auto) 01/30/23 01/30/23 01/31/23 16:04 22:39 05:00 WBC RBC Hgb Hct MCV MCH MCHC RDW Std Deviation RDW Coeff of Regina Plt Count MPV Immature Gran % (Auto) Neut % (Auto) Lymph % (Auto) Vernon % (Auto) Eos % (Auto) Baso % (Auto) Neut # (Auto) Lymph # (Auto) Vernon # (Auto) Eos # (Auto) Baso # (Auto) Immature Gran # (Auto) PT INR APTT 75.8 H* 44.7 H* PTT Ratio 2.7 1.6 Sodium Potassium Chloride Carbon Dioxide Anion Gap BUN Creatinine Est Cr Clr Drug Dosing Est GFR ( Amer) Est GFR (Non-Af Amer) BUN/Creatinine Ratio Glucose Estimat Average Glucose Hemoglobin A1c Calcium Troponin I High Sens Triglycerides Cholesterol LDL Cholesterol, Calc VLDL Cholesterol, Calc HDL Cholesterol Cholesterol/HDL Ratio Urine Color Yellow Urine Appearance Clear Urine pH 5.5 Ur Specific [place] > 1.045 H Urine Protein Trace H Urine Glucose (UA) Negative Urine Ketones 1+ H Urine Blood Trace H Urine Nitrite Negative Urine Bilirubin Negative Urine Urobilinogen Negative Ur Leukocyte Esterase Negative Urine WBC (Auto) 1-5 Urine RBC (Auto) 10-30 H U Hyaline Cast (Auto) 1-5 U Epithel Cells (Auto) 0-5 Urine Bacteria (Auto) Negative 01/31/23 01/31/23 01/31/23 05:54 05:54 05:54 WBC 9.90 RBC 4.78 Hgb 11.1 L Hct 36.4 L MCV 76.2 L MCH 23.2 L MCHC 30.5 L RDW Std Deviation 45.8 RDW Coeff of Regina 17.4 H Plt Count 264 MPV 9.8 Immature Gran % (Auto) 0.5 Neut % (Auto) 84.0 Lymph % (Auto) 5.4 Vernon % (Auto) 8.5 Eos % (Auto) 0.8 Baso % (Auto) 0.8 Neut # (Auto) 8.32 H Lymph # (Auto) 0.53 L Vernon # (Auto) 0.84 H Eos # (Auto) 0.08 Baso # (Auto) 0.08 Immature Gran # (Auto) 0.05 PT Pending INR Pending APTT Pending PTT Ratio Pending Sodium Pending Potassium Pending Chloride Pending Carbon Dioxide Pending Anion Gap Pending BUN Pending Creatinine Pending Est Cr Clr Drug Dosing Pending Est GFR ( Amer) Pending Est GFR (Non-Af Amer) Pending BUN/Creatinine Ratio Pending Glucose Pending Estimat Average Glucose Hemoglobin A1c Calcium Pending Troponin I High Sens Triglycerides Pending Cholesterol Pending LDL Cholesterol, Calc Pending VLDL Cholesterol, Calc Pending HDL Cholesterol Pending Cholesterol/HDL Ratio Pending Urine Color Urine Appearance Urine pH Ur Specific [place] Urine Protein Urine Glucose (UA) Urine Ketones Urine Blood Urine Nitrite Urine Bilirubin Urine Urobilinogen Ur Leukocyte Esterase Urine WBC (Auto) Urine RBC (Auto) U Hyaline Cast (Auto) U Epithel Cells (Auto) Urine Bacteria (Auto) 01/31/23 05:54 WBC RBC Hgb Hct MCV MCH MCHC RDW Std Deviation RDW Coeff of Regina Plt Count MPV Immature Gran % (Auto) Neut % (Auto) Lymph % (Auto) Vernon % (Auto) Eos % (Auto) Baso % (Auto) Neut # (Auto) Lymph # (Auto) Vernon # (Auto) Eos # (Auto) Baso # (Auto) Immature Gran # (Auto) PT INR APTT PTT Ratio Sodium Potassium Chloride Carbon Dioxide Anion Gap BUN Creatinine Est Cr Clr Drug Dosing Est GFR ( Amer) Est GFR (Non-Af Amer) BUN/Creatinine Ratio Glucose Estimat Average Glucose Pending Hemoglobin A1c Pending Calcium Troponin I High Sens Triglycerides Cholesterol LDL Cholesterol, Calc VLDL Cholesterol, Calc HDL Cholesterol Cholesterol/HDL Ratio Urine Color Urine Appearance Urine pH Ur Specific [place] Urine Protein Urine Glucose (UA) Urine Ketones Urine Blood Urine Nitrite Urine Bilirubin Urine Urobilinogen Ur Leukocyte Esterase Urine WBC (Auto) Urine RBC (Auto) U Hyaline Cast (Auto) U Epithel Cells (Auto) Urine Bacteria (Auto) Diagnostic Findings Chest X-Ray 01/30/23 04:31 XR chest 1V portable CLINICAL HISTORY: Dyspnea. COMPARISON STUDY: No previous studies for comparison. FINDINGS: There is complete opacification of the right hemithorax with associated leftward deviation of the mediastinal structures. No consolidation within the left lung is present. There is no left pleural effusion. No pneumothorax is present. IMPRESSION: Complete opacification of the right hemithorax with associated leftward deviation of mediastinal structures. The findings suggest a large right pleural effusion with right lung atelectasis. ACT 112: Negative or not required by law. Electronically signed by: Mahendra Borjas M.D. 01/30/2023 7:33 AM Chest CTA 01/30/23 04:38 CT ANGIOGRAPHY OF THE CHEST, PULMONARY EMBOLUS PROTOCOL CLINICAL HISTORY: Shortness of breath. Evaluate for pulmonary embolus. COMPARISON STUDY: Chest radiograph performed earlier today. TECHNIQUE: Following IV administration of 116 mL of Optiray, helical axial images of the chest were obtained utilizing the pulmonary embolus protocol. Maximal intensity projections and sagittal and coronal reformats were viewed on an independent 3D workstation. IV contrast was administered without complication. Automated exposure control was utilized for the study. A dose lowering technique was utilized adhering to the principles of ALARA. CT DOSE: 265.75 mGy.cm FINDINGS: Note is made of several segmental pulmonary emboli within the left lung. This exam is compromised by respiratory motion. No central pulmonary emboli are identified. Note is made of a large right pleural effusion which occupies the majority of the right hemithorax. There is associated right lung collapse and leftward deviation of mediastinal structures. A rind of enhancing right pleural soft tissue is present. Conglomerate enhancing soft tissue extends through the right anterior chest wall. This conglomerate mass measures approximately 9.5 x 5.3 cm and encases the bilateral internal mammary arteries. Enhancing soft tissue extends into several right-sided neural foramen. There is no associated bone destruction. Note is also made of extensive lower cervical, thoracic and upper abdominal lymphadenopathy. Index left supraclavicular node on image 205 of 221 measures 2.3 x 1.4 cm. A right retropectoral node on image 174 measures 3.1 x 2.2 cm. Right axillary node on image 154 measures 2.7 x 1.8 cm. Left para-aortic lymph node adjacent to the proximal abdominal aorta on image 20 measures 2.4 x 1.6 cm. Retrocrural/periaortic conglomerate adenopathy is also present. No consolidation within the left lung is present. There are no suspicious left lung nodules. No suspicious osseous lesions are identified. IMPRESSION: 1. Several segmental pulmonary emboli within the left lung. 2. Very large right pleural effusion which occupies the majority of the right hemithorax with associated right lung collapse and leftward deviation of mediastinal structures. Rind of enhancing right pleural soft tissue consistent with a neoplastic process with malignant effusion. Enhancing infiltrative soft tissue extends through the right anterior chest wall. Extensive lower cervical, thoracic and upper mediastinal lymphadenopathy. The findings represent a neoplastic process and lymphoma is a primary consideration. However, other etiologies such as metastatic lung cancer, metastatic disease of unknown primary or less likely mesothelioma can't be excluded. ACT 112: Positive. There are findings on this exam that require communication between the performing entity and the patient following Patient Test Result Information Act ([place] Act 112) guidelines. Electronically signed by: Mahendra Borjas M.D. 01/30/2023 6:55 AM Duplex Scan Upper Extremity Artery 01/30/23 04:38 LEFT UPPER EXTREMITY DOPPLER ULTRASOUND CLINICAL HISTORY: cool, swollen, ? arterial occlusion COMPARISON STUDY: No previous studies for comparison. TECHNIQUE: Sonography of the arterial system of the left upper extremity was performed. FINDINGS: Pathologic left supraclavicular lymphadenopathy is incidentally noted. Index node measures 2.7 x 2.3 x 1.3 cm. Incidental note is also made of extensive deep venous thrombus within the left internal jugular, subclavian, brachial and radial veins. No elevated velocities within the arterial systems of the left upper extremity are noted. The arteries are patent within the left upper extremity. Left upper extremity edema is present. IMPRESSION: 1. Patent left upper extremity arteries. No elevated velocities. 2. Extensive deep venous thrombus within the left internal jugular, subclavian, brachial and radial veins. 3. Pathologic left supraclavicular lymphadenopathy. This is consistent with a neoplastic process and could reflect lymphoma or metastatic disease. ACT 112: Negative or not required by law. Electronically signed by: Mahendra Borjas M.D. 01/30/2023 7:10 AM PG Care Time/CCT Total # of Minutes Spent Total Time Spent with Patient: Total time spent is greater than 50% in coordination of care (as documented) at patient's floor/unit and/or counseling patient: Coding Level of Care Code 77143 IN/OBS CONSULT LVL 3,45M Diagnoses Chest wall mass R22.2 Pulmonary emboli I26.94 Pulmonary embolism type: multiple subsegmental (without acute cor pulmonale) (2) Pulmonary emboli Pulmonary embolism type: multiple subsegmental (without acute cor pulmonale) Qualified Code(s): I26.94 - Multiple subsegmental pulmonary emboli without acute cor pulmonale
--- NOTE | 2023-01-31 07:43 | Pulmonology Progress Note ---
Date of Service January 31, 2023 Assessment & Plan (1) Pleural effusion on right: (2) Shortness of breath: (3) Pulmonary emboli: Pulmonary embolism type: multiple subsegmental (without acute cor pulmonale) Qualified Code(s): I26.94 - Multiple subsegmental pulmonary emboli without acute cor pulmonale (4) DVT (deep venous thrombosis): Affected thrombotic vein of extremity: unspecified vein of extremity Chronicity: unspecified DVT location: upper extremity Laterality: left Qualified Code(s): I82.622 - Acute embolism and thrombosis of deep veins of left upper extremity (5) Chest wall mass: Plan IMPRESSION: 72-year-old female presenting to the emergency department with shortness of breath and hypoxia requiring 2 L nasal cannula who was found to have a large RIGHT-sided pleural effusion with concerns for infiltrative RIGHT- sided chest wall mass, pulmonary emboli, and extensive LEFT upper extremity DVT. RECOMMENDATIONS: 1. RIGHT-sided pleural effusion - Concerning for malignant pleural effusion in the setting of new RIGHT-sided chest wall mass. With compression of the RIGHT- sided lung and associated shortness of breath. Patient continues to require only 2 L NC at this time. Thoracentesis today after core biopsy of supraclavicular node. She will need to be off of the heparin drip for 2 hours prior to intervention. This was discussed with primary RN. Heparin gtt to be off at 0800. There may be benefit to Pleurx catheter in the patient's future depending on reaccumulation after thoracentesis. This will be reviewed with the patient is a later time pending responsiveness to thoracentesis. 2. Shortness of breath - Likely multifactorial related to the patient's large RIGHT-sided pleural effusion as well as associated LEFT-sided pulmonary emboli. Again, thankfully, the patient is not severely symptomatic at this point. We will perform thoracentesis as discussed above and assess patient's responsiveness moving forward. 3. Pulmonary emboli - Difficult to assess the RIGHT-sided lung structure sec ondary to large effusion. Small subsegmental PEs appreciated in the LEFT-sided lung field. CT evaluation demonstrates concerns for possible cardiac strain. Agree with heparin drip at this time. Echo with slight elevation of RIGHT sided pressures (PASP 35 mmHg). Otherwise, unremarkable echo. 4. DVT - Patient with extensive DVT of the LEFT upper extremity. Likely related to the patient's underlying coagulopathy with presumed malignancy. Continue with Heparin gtt for now. 5. Chest wall mass - With infiltrative component to the RIGHT-sided anterior chest wall. Biopsy of the supraclavicular node to be performed today. This, in combination with pleural cytology/pathology will help for staging with the patient moving forward. Appreciate oncology recommendations. Given the patient's circumstances and lack of support as well as need for goals of care decision making moving forward, engagement with palliative care would likely be helpful for this patient as well. Thank you for allowing us to participate in the care of this patient. We will continue to follow along during her hospitalization. Admission and Anticipated Discharge Date Admission Date: January 30, 2023 Supervising Physician Co-Signing Physician Notes Patient seen and examined this am. Anxious but NAD, A/O x 3. Heparin gtt held this am, planning for IR biopsy. Planning to follow with diagnostic/therapeutic thoracentesis before resuming heparin gtt. Leukocytosis improved, does not appear toxic. Continues on 2 L nc oxygen. Plan: -- IR core biopsy today -- Right thoracentesis today -- Resume heparin gtt post procedure -- Follow pathology, cytology, all cultures -- May consider pleurX in the future -- Appreciate oncology recs Subjective Patient was seen and evaluated at bedside. She reports that she did get some rest last night. She is nervous about procedures today. She offers no complaints at this time. Review of Systems Review of Systems: Unchanged from prior Physical Exam Physical Exam: VITAL SIGNS - Vital signs and nursing notes were reviewed. GENERAL - 72-year-old female appearing her stated age who is in no acute distress. Communicates well with provider and answers questions appropriately. LUNGS - Chest wall evaluation demonstrates a large, ~8cm mass to the RIGHT upper chest wall. Nontender to palpation. Nonmobile. No erythema or induration noted. Auscultation reveals absent breath sounds on the RIGHT with clear breath sounds without wheezes, rales, or rhonchi appreciated on the LEFT. CARDIAC - RRR with S1/S2. No murmur, rubs, or gallops appreciated. ABDOMEN - Abdominal inspection demonstrates a flat abdomen. BS normoactive all four quadrants. No tenderness, palpable masses, or ascites noted. EXTREMITIES - Moderate edema noted to the LEFT upper extremity. No peripheral cyanosis. No pretibial edema present. +3/5 radial palpated throughout. PSYCH - A&Ox3 and cooperates fully with examiner. Pt is very pleasant and interacts well with examiner. Results & Data Results & Data Vital Signs (Past 12 Hours) Vital Signs Temp Pulse Pulse Resp BP Pulse Ox O2 Del Method 01/31/23 07:20 36.5 C 94 H 18 121/78 96 Room Air 01/31/23 03:17 36.5 C 89 18 116/71 94 Nasal Cannula 01/31/23 00:00 97 H 01/30/23 23:04 36.6 C 93 H 16 110/73 92 Nasal Cannula 01/30/23 21:00 Nasal Cannula 01/30/23 19:50 36.6 C 99 H 20 113/68 94 Nasal Cannula O2 Flow Rate 01/31/23 07:20 01/31/23 03:17 2 01/31/23 00:00 01/30/23 23:04 2 01/30/23 21:00 2 01/30/23 19:50 2 PG Care Time/CCT Total # of Minutes Spent Total Time Spent with Patient: Total time spent is greater than 50% in coordination of care (as documented) at patient's floor/unit and/or counseling patient: Coding Level of Care Code 58239 SUB INP/OBS CARE 3/50MIN Diagnoses Pleural effusion on right J90 Shortness of breath R06.02 Pulmonary emboli I26.94 Pulmonary embolism type: multiple subsegmental (without acute cor pulmonale) DVT (deep venous thrombosis) I82.622 Affected thrombotic vein of extremity: unspecified vein of extremity Chronicity: unspecified DVT location: upper extremity Laterality: left Chest wall mass R22.2
[2023-01-31 07:45] LABS: INR 1.1 (0.9-1.1); Partial Thromboplastin Ratio 2.1; Prothrombin Time 12.3 Seconds (9.0-12.0)
[2023-01-31 07:53] LABS: Partial Thromboplastin Time 60.1 Seconds (21.0-31.0)
[2023-01-31 08:28] LABS: Estimated Average Glucose 131 mg/dl; Hemoglobin A1C 6.2 % (4.5-5.6)
--- NOTE | 2023-01-31 09:44 | Hospitalist Progress Note ---
Date of Service January 31, 2023 Assessment & Plan (1) Pleural effusion on right: (2) DVT (deep venous thrombosis): (3) Chest wall mass: (4) Pulmonary emboli: (5) Elevated troponin: (6) Constipation: (7) Acute respiratory failure with hypoxia: Plan 1) Acute hypoxic respiratory failure: >2 weeks duration, progressive. CXR and Chest CT on admission show significant right sided pleural effusion with left shift of mediastinal structures. Per radiology, effusion likely malignancy- related. CT also showed right chest wall mass, several left sided PEs, and significant pathologic lymphadenopathy. Per radiology, lymphoma most likely but mets from other primary cancer vs mesothelioma cannot be ruled out. Concern for pneumonia low at this time given patient's lack of fever. -Pt on high flow oxygen via NC -Heparin drip started 01/30 -Pulmonology consulted, appreciate recs -Thoracentesis performed 01/31: 2L tea-colored cloudy fluid drained. Residual 500 to 800 cc remaining in the right hemithorax post procedure.Patient tolerated the procedure well.F/u CXR immediately post-procedure showed residual pulmonary edema but no pneumothorax. -Fluid sample to cytology, results pending. -Patient having increased O2 demand (15L) 1-2 hours post-procedure, with increased coughing and rhonchi on exam. (See attending addendum for full exam.) Repeat CXR ordered, radiology read pending but on our read appears to be right- sided pulmonary edema. -Lasix ordered -Biopsy of chest mass pending -Heme/onc consulted, will follow up after biopsy results offer a more specific diagnosis 2) Pleural effusion on right: per radiology, likely malignancy related -Pulm consulted -- thoracentesis as above 3) DVT in left arm: Venous Doppler in ED showed extensive thrombus within the left internal jugular, subclavian, brachial and radial veins. -Heparin started as above 4) Chest wall mass: noted on physical exam, CXR, and CT. Per radiology, likely malignant. -As above 5) Pulmonary emboli: Left sided pulmonary emboli noted on CT -Heparin started as above -Oxygen started as above 6) Elevated troponin: Patient had slightly elevated troponin (15.4) in ED. Demand ischemia vs PE vs IA. EKG showed sinus tach with low voltage QRS but could not rule out anterior infarct of any age. -Repeat trop. 17.7 -Cardiac echo unremarkable aside from evidence of pulmonary hypertension 7) Constipation: Patient has not had a "normal" bowel movement in 2 weeks. Reports small volumes of loose stool consistent with overflow. Constipation vs obstruction. No abdominal pain or distension is reassuring for obstruction, but given patient's family history of colon cancer, lack of prior colonoscopies, and current unidentified malignancy, concern remains. -Miralax ordered -If patient does not have a bowel movement, consider KUB or CT abd to evaluate for obstruction -Recommend outpatient colonoscopy Admission and Anticipated Discharge Date Admission Date: January 30, 2023 Supervising Physician Co-Signing Physician Notes I personally examined the patient and verified all perera points of history and exam, discussed case, and agree with decision making with Jose Root MS4 seen a few hours after thoracentesishad rapid rise in oxygen requirement was feeling a new cough. Interestingly she was not really talking about much of any shortness of breath, although she did note that her breathing was better when she was on supplemental oxygen. Vitals noted, mild accessory muscle use and mild respiratory distress, diffuse rhonchi bilaterally but good air entry norah aterally. Chest x-ray reviewedleft lung mostly clear, right appears most consistent with pulmonary edema. Respiratory distress/hypoxic respiratory failurereexpansion edema versus mucous plugging versus developing pneumoniashe unfortunately continued to worsen and was moved to the ICU. Diuretics given, antibiotics started, ongoing supportive care metastatic cancer, unknown primarypathology pending VTEheparin drip otherwise as above Subjective This morning Mary is feeling "okay". She thinks that the swelling in her arm has gone down somewhat, and moving it is no longer painful. Her breathing is mostly unchanged since admission. She is nervous about the upcoming procedures, but is hopeful that the thoracentesis will help her breathing. Her appetite is still poor. She has not had a bowel movement yet. Physical Exam Physical Exam: General: Chronically ill-appearing, cachectic 72-year-old female, in no significant distress. HEENT: No scleral icterus, PERRLA, neck supple. Atraumatic. Cardiovascular: Tachycardic but regular, no extra sounds. No pedal edema, no calf tenderness. Pulmonary: Diminished breath sounds on the right, increased work of breathing on nasal cannula oxygen Abdomen: Soft, nontender, nondistended, positive bowel sounds. Musculoskeletal: Atraumatic, no pedal edema. 6 cm nontender circular protuberant mass on the right anterior ribs above the breast. Left arm is edematous from the elbow to the distal fingers, reduced swelling compared to yesterday. Faint radial pulse appreciated on left, strong on right. Neurologic: Patient awake alert and oriented x 3, speech is clear Skin: Warm, dry, no rash Results & Data Results & Data Vital Signs (Past 12 Hours) Vital Signs Temp Pulse Pulse Resp BP Pulse Ox O2 Del Method 01/31/23 08:12 Nasal Cannula 01/31/23 07:20 36.5 C 94 H 18 121/78 96 Room Air 01/31/23 03:17 36.5 C 89 18 116/71 94 Nasal Cannula 01/31/23 00:00 97 H 01/30/23 23:04 36.6 C 93 H 16 110/73 92 Nasal Cannula O2 Flow Rate 01/31/23 08:12 3 01/31/23 07:20 01/31/23 03:17 2 01/31/23 00:00 01/30/23 23:04 2 (2) DVT (deep venous thrombosis) Affected thrombotic vein of extremity: unspecified vein of extremity Chronicity: unspecified DVT location: upper extremity Laterality: left Qualified Code(s): I82.622 - Acute embolism and thrombosis of deep veins of left upper extremity (4) Pulmonary emboli Pulmonary embolism type: multiple subsegmental (without acute cor pulmonale) Qualified Code(s): I26.94 - Multiple subsegmental pulmonary emboli without acute cor pulmonale
--- NOTE | 2023-01-31 11:44 | Procedure Note ---
Procedure Note Date of Service January 31, 2023 Note Right Thoracentesis Informed consent obtained. Patient prepped and draped in standard sterile fashion. Ultrasound was used to yahir the space between the right 8-9th ribs along the lateral scapular line. Area numbed with 1% lidocaine without epi. Standard thoracentesis kit used to extract a total of 2L of tea-colored cloudy fluid from the right hemithorax. US post procedure did not demonstrate pneumothorax, there was a residual 500 to 800 cc remaining in the right hemithorax post procedure. Patient tolerated the procedure well. CXR is pending. Coding
--- NOTE | 2023-01-31 12:29 | XRay Report ---
SINGLE VIEW CHEST CLINICAL HISTORY: Status post right-sided thoracentesis. FINDINGS: An AP, portable, upright chest radiograph is compared to chest x-ray and chest CT dated 01/30. The cardiomediastinal silhouette is unremarkable noting atherosclerotic calcification of the t horacic aorta. There is pulmonary vascular congestion. Prominence along the left mediastinal border i s consistent with lymphadenopathy when compared to yesterday's chest CT. The right pleural effusion i s significantly decreased in size with improved aeration of the right lung. There is a residual right pleural effusion with right basilar consolidation. This is significantly decreased in size from yest erday. Opacity projecting over the right lung base also likely includes a anterior pleural-based mass lesion when correlated with yesterday's CT scan. No pneumothorax is seen. The skeletal structures ar e osteopenic. The bony thorax is grossly intact. IMPRESSION: 1. No pneumothorax is seen post procedure. 2. Residual right pleural effusion with consolidation/opacification at the right lung base. Some of t his likely represents a mass lesion when compared to the prior chest CT. Correlate clinically for andrés dence of a superimposed pneumonia and/or or reexpansion edema. 3. Pulmonary vascular congestion. 4. Mediastinal lymphadenopathy. ACT 112: Negative or not required by law. Electronically signed by: Robbie Shah M.D. 01/31/2023 12:27 PM
[2023-01-31 12:47] LABS: Amylase Pleural Fluid < 10 U/L
[2023-01-31 12:53] LABS: Glucose Pleural Fluid 59 mg/dl; LDH Pleural Fluid 1090 U/L; Total Protein Pleural Fluid 3.6 gm/dl
--- NOTE | 2023-01-31 13:47 | Ultrasound Report ---
ULTRASOUND-GUIDED RIGHT AXILLARY LYMPH NODE CORE BIOPSY CLINICAL HISTORY: Chest wall mass with severe lymphadenopathy PROCEDURE: Procedure and risks were explained. Informed consent was obtained. A final timeout was com pleted. The right axilla was prepped and draped in sterile fashion. 1% buffered lidocaine was utilize d for skin anesthesia. Utilizing ultrasound guidance, an 18-gauge core biopsy needle was advanced into the abnormal-appearin g right axillary lymph node. Ultrasound images were obtained. 3 cores were obtained and given to the pathologist for review. The needle was removed and Band-Aid applied. The patient tolerated the proced ure well. IMPRESSION: Right axillary lymph node core biopsy as above. Performed, dictated, and signed by Yaya Rocha PA-C; to be co-signed by Dr. Stepan Fernando. Electronically signed by: Stepan Fernando M.D. 01/31/2023 2:23 PM
[2023-01-31 13:49] LABS: Appearance Pleural Fluid Cloudy; Color Pleural Fluid Straw; RBC Pleural Fluid Auto 11000 /uL; Source Pleural Fluid Right Lung; WBC Pleural Fluid Auto 9254 /uL
[2023-01-31] MEDS ORDERED: FUROSEMIDE INJ 20 MG/2 ML VIAL IV ONE ×2 (14:45→14:54)
--- NOTE | 2023-01-31 15:11 | XRay Report ---
SINGLE VIEW CHEST CLINICAL HISTORY: Hypoxia. Status post right thoracentesis FINDINGS: An AP, portable, upright chest radiograph is compared to chest x-ray performed earlier the same day 01/31/2023 and correlated with chest CT dated 01/30/2023. The examination is degraded by portabl e technique and patient rotation. The cardiomediastinal silhouette is unremarkable noting atheroscle rotic calcification of the thoracic aorta. There is mild pulmonary vascular congestion. Prominence al latanya the left mediastinal border is consistent with lymphadenopathy when compared to yesterday's chest CT. A right pleural effusion is again noted. There is increasing airspace opacification throughout t he right lung. There developing airspace opacity at the left lung base. No pneumothorax is seen. The skeletal structures are osteopenic. The bony thorax is grossly intact. IMPRESSION: 1. No pneumothorax is identified. 2. There is increasing opacification throughout the right lung, likely representing reexpansion edema . Correlate clinically for evidence of a superimposed pneumonitis. Radiographic follow-up to resoluti on is recommended. 3. A residual right pleural effusion has not appreciably changed from today's earlier examination. 4. There are developing airspace opacities at the left lung base which could represent atelectasis ve rsus pneumonia. Attention on follow-up is recommended. 5. Mediastinal lymphadenopathy. ACT 112: Negative or not required by law. Electronically signed by: Robbie Shah M.D. 01/31/2023 3:09 PM
[2023-01-31 15:39] LABS: Hematocrit (blood only) 44.2 % (37.0-47.0); Hemoglobin 13.7 g/dl (12.0-16.0); Mean Corpuscular Hemoglobin 23.5 pg (25.0-34.0); Mean Corpuscular Volume 75.8 fL (80.0-100.0); Mean Platelet Volume 9.9 fL (9.4-12.4); Platelet Count 323 K/uL (130-400); RDW Coefficient of Variation 18.7 % (11.5-14.5); RDW Standard Deviation 45.7 fL (36.4-46.3); Red Blood Count 5.83 M/uL (4.20-5.40); White Blood Count 22.89 K/ul (4.8-10.8)
[2023-01-31 15:40] LABS: BUN Creatinine Ratio 21.3 (10-20); Calcium 8.5 mg/dl (8.6-10.3); Creatinine Clr Calc Pharmacy 63.9 ml/min; Est GFR (African American) 106.5 ml/min; Est GFR (Non-African American) 91.9 ml/min; Magnesium 1.8 mg/dl (1.7-2.4); Phosphorus 2.1 mg/dl (2.5-4.9); Potassium 3.6 mmol/L (3.5-5.1)
--- NOTE | 2023-01-31 15:53 | Hospitalist Progress Note ---
Date of Service January 31, 2023 Assessment & Plan (1) Shortness of breath: (2) Pleural effusion on right: (3) DVT (deep venous thrombosis): (4) Chest wall mass: (5) Pulmonary emboli: (6) Elevated troponin: (7) Constipation: Plan 1) Shortness of breath - Hypoxic Respiratory Failure vs Pneumonia: >2 weeks duration, progressive. CXR and Chest CT on admission show significant right sided pleural effusion with left shift of mediastinal structures. Per radiology, effusion likely malignancy-related. CT also showed right chest wall mass, several left sided PEs, and significant pathologic lymphadenopathy. Per radiology, lymphoma most likely but mets from other primary cancer vs mesothelioma cannot be ruled out. -Heparin drip -US guided biopsy done today, results pending -Pulmonology consulted, thoracentesis done today, yielded 2L fluid - CXR post-procedure: Residual right pleural effusion with consolidation/opacification at the right lung base -Repeat CXR: increasing opacification throughout the right lung, likely representing reexpansion edema -Worsening respiratory distress after thoracentesis, oxygen requirement up to 15L by oxymask to maintain sats>90 - WBC 8/2 22.89 -Pt transferred to ICU, Unasyn started -Lasix given 2) Pleural effusion on right: per radiology, likely malignancy related -Pulm consulted, thoracentesis to be performed tomorrow 3) DVT in left arm: Venous Doppler in ED showed extensive thrombus within the left internal jugular, subclavian, brachial and radial veins. -Heparin drip 4) Chest wall mass: noted on physical exam, CXR, and CT. Per radiology, likely malignant. -IR biopsy done today, results pending 5) Pulmonary emboli: Left sided pulmonary emboli noted on CT -Heparin drip -Oxygen started as above 6) Elevated troponin: Patient had slightly elevated troponin (15.4) in ED. Demand ischemia vs PE vs [place]. EKG showed sinus tach with low voltage QRS but could not rule out anterior infarct of any age. -Repeat trops 17.7, 9.8, 12.4 7) Constipation: Patient has not had a "normal" bowel movement in 2 weeks. Reports small volumes of loose stool consistent with overflow. Constipation vs obstruction. No abdominal pain or distension is reassuring for obstruction, but given patient's family history of colon cancer, lack of prior colonoscopies, and current unidentified malignancy, concern remains. -Miralax ordered -Recommend outpatient colonoscopy Admission and Anticipated Discharge Date Admission Date: January 30, 2023 Supervising Physician Co-Signing Physician Notes I personally examined the patient and verified all perera points of history and exam, discussed case, and agree with decision making with Dr Leong seen a few hours after thoracentesishad rapid rise in oxygen requirement was feeling a new cough. Interestingly she was not really talking about much of any shortness of breath, although she did note that her breathing was better when she was on supplemental oxygen. Vitals noted, mild accessory muscle use and mild respiratory distress, diffuse rhonchi bilaterally but good air entry bilaterally. Chest x-ray reviewedleft lung mostly clear, right appears most consistent with pulmonary edema. Respiratory distress/hypoxic respiratory failurereexpansion edema versus mucous plugging versus developing pneumoniashe unfortunately continued to worsen and was moved to the ICU. Diuretics given, antibiotics started, ongoing supportive care metastatic cancer, unknown primarypathology pending VTEheparin drip otherwise as above Subjective Patient evaluated at bedside, presents as calm and cooperative, in no apparent distress. Patient states that she becomes short of breath with movement, even within bed. At rest, denies SOB. Denies pain, chest pain. Patient shares that she is a bit nervous about her procedures for the day, biopsy and thoracentesis scheduled for later today. Review of Systems Review of Systems: All systems reviewed & are unremarkable except as noted in HPI & below Physical Exam Constitutional: WD/WN, vitals as above + thin; no acute distress Respiratory: good respiratory effort, significantly decreased breath sounds in right lung Cardiovascular: RRR, no murmur, no edema Skin: no rashes, warm and dry firm mass palpable on right upper chest wall Results & Data Results & Data Vital Signs (Past 12 Hours) Vital Signs Temp Pulse Pulse Resp BP BP Pulse Ox 01/31/23 14:01 102 H 01/31/23 14:20 01/31/23 15:14 36.3 C L 123 H 38 H 150/89 H 92 01/31/23 14:55 105 H 34 H 142/87 H 93 01/31/23 14:32 118 H 36 H 94 01/31/23 10:52 36.5 C 101 H 22 148/88 H 96 01/31/23 07:00 92 H 01/31/23 08:12 01/31/23 07:20 36.5 C 94 H 18 121/78 96 O2 Del Method O2 Flow Rate 01/31/23 14:01 01/31/23 14:20 Oxymask 15 01/31/23 15:14 Oxymask 15 01/31/23 14:55 Oxymask 8 01/31/23 14:32 Oxymask 15 01/31/23 10:52 Nasal Cannula 6 01/31/23 07:00 01/31/23 08:12 Nasal Cannula 3 01/31/23 07:20 Room Air (3) DVT (deep venous thrombosis) Affected thrombotic vein of extremity: unspecified vein of extremity Chronicity: unspecified DVT location: upper extremity Laterality: left Qu alified Code(s): I82.622 - Acute embolism and thrombosis of deep veins of left upper extremity (5) Pulmonary emboli Pulmonary embolism type: multiple subsegmental (without acute cor pulmonale) Qualified Code(s): I26.94 - Multiple subsegmental pulmonary emboli without acute cor pulmonale
[2023-01-31 15:57] LABS: Acanthocytes 1+; Basophils # (auto) 0.12 K/uL (0-0.2); Basophils % (auto) 0.5 %; Echinocytes 3+; Eosinophils # (auto) 0.03 K/uL (0-0.50); Eosinophils % (auto) 0.1 %; Immature Granulocytes # (auto) 0.12 K/uL (0.01-0.20); Immature Granulocytes % (auto) 0.5 %; Lymphocytes # (auto) 0.53 K/uL (1.2-3.4); Lymphocytes % (auto) 2.3 %; Monocytes # (auto) 1.22 K/uL (0.11-0.59); Monocytes % (auto) 5.3 %; Neutrophils # (auto) 20.87 K/uL (1.40-6.50); Neutrophils % (auto) 91.3 %
[2023-01-31] MEDS: Patient's ALLERGY Info needs ENTERED SCH ×4 (16:50→21:26)
[2023-01-31] MEDS: HEPARIN SODIUM/DEXTROSE 25,000 UNITS/500 ML BAG IV SCH (16:57)
[2023-01-31] MEDS: ICU Protocol for HYPERglycemia SCH ×2 (17:00→21:53)
[2023-01-31 17:06] LABS: iSTAT Allen Test Pass; iSTAT Art Bld Gas pCO2 Correct 32 mmHg (35-46); iSTAT Art Bld Gas pH Corrected 7.419 (7.35-7.45); iSTAT Arterial Blood Gas HCO3 21 meg/L (19-24); iSTAT Arterial Blood Gas pCO2 33 mmHg (35-46); iSTAT Arterial Blood Gas pH 7.42 (7.35-7.45); iSTAT Arterial Blood Gas pO2 100 mmHg (80-95); iSTAT Arterial Blood Gas pO2 C 99; iSTAT Carbon Dioxide 22 mmol/L (24-31); iSTAT FiO2 50 %; iSTAT Hematocrit 45 % (37-47); iSTAT Hemoglobin 15.3 g/dl (12.0-16.0); iSTAT Potassium 3.4 mmol/L (3.3-5.0); iSTAT Site R Radial; iSTAT Sodium 137 mmol/L (135-144)
[2023-01-31] MEDS: AMPICILLIN/SULBACTAM SOD 3,000 MG in 0.9 % SODIUM CHLORIDE 100 ML IV SCH ×2 (17:13→22:58)
[2023-01-31 17:41] LABS: BUN Creatinine Ratio 22.2 (10-20); Calcium 8.7 mg/dl (8.6-10.3); Creatinine Clr Calc Pharmacy 61.9 ml/min; Est GFR (African American) 105.3 ml/min; Est GFR (Non-African American) 90.9 ml/min; Potassium 3.6 mmol/L (3.5-5.1)
--- NOTE | 2023-01-31 17:58 | Billing Data ---
Date of Service January 31, 2023 Coding Level of Care Code 45306 SUB INP/OBS CARE
[2023-01-31] MEDS ORDERED: CARBOHYDRATES FOR HYPOGLYCEMIA PO PRN (21:54)
[2023-01-31] MEDS ORDERED: GLUCAGON FOR INJ 1 MG VIAL SQ PRN (21:54)
[2023-01-31] MEDS ORDERED: GLUCOSE 10 TAB/TUBE PO PRN (21:54)
[2023-01-31] MEDS ORDERED: DEXTROSE 50% 50 ML SYRINGE IV PRN (21:54)
[2023-01-31] MEDS ORDERED: GLUCOSE 40% GEL 15 GM TUBE PO PRN (21:54)
[2023-01-31] MEDS ORDERED: Nursing to Pharmacy Communication SCH (22:00)
[2023-01-31] MEDS: INSULIN ASPART PER UNIT CHARGE SC SCH (22:55)
[2023-02-01] MEDS: AMPICILLIN/SULBACTAM SOD 3,000 MG in 0.9 % SODIUM CHLORIDE 100 ML IV SCH ×4 (04:12→23:26)
[2023-02-01 05:32] LABS: BUN Creatinine Ratio 20.3 (10-20); Calcium 8.3 mg/dl (8.6-10.3); Creatinine Clr Calc Pharmacy 56.5 ml/min; Est GFR (African American) 102.2 ml/min; Est GFR (Non-African American) 88.2 ml/min; Magnesium 1.8 mg/dl (1.7-2.4); Phosphorus 2.1 mg/dl (2.5-4.9); Potassium 3.5 mmol/L (3.5-5.1)
[2023-02-01 05:35] LABS: Basophils # (auto) 0.04 K/uL (0-0.2); Basophils % (auto) 0.4 %; Eosinophils # (auto) 0.03 K/uL (0-0.50); Eosinophils % (auto) 0.3 %; Hematocrit (blood only) 37.1 % (37.0-47.0); Hemoglobin 11.6 g/dl (12.0-16.0); Immature Granulocytes # (auto) 0.04 K/uL (0.01-0.20); Immature Granulocytes % (auto) 0.4 %; Lymphocytes # (auto) 0.65 K/uL (1.2-3.4); Lymphocytes % (auto) 5.8 %; Mean Corpuscular Hemoglobin 23.2 pg (25.0-34.0); Mean Corpuscular Hgb Conc 31.3 g/dL (32.0-36.0); Mean Corpuscular Volume 74.3 fL (80.0-100.0); Mean Platelet Volume 9.5 fL (9.4-12.4); Monocytes # (auto) 0.85 K/uL (0.11-0.59); Monocytes % (auto) 7.6 %; Neutrophils % (auto) 85.5 %; Platelet Count 260 K/uL (130-400); RDW Coefficient of Variation 17.7 % (11.5-14.5); RDW Standard Deviation 43.9 fL (36.4-46.3); Red Blood Count 4.99 M/uL (4.20-5.40); White Blood Count 11.21 K/ul (4.8-10.8)
[2023-02-01 05:38] LABS: Troponin I High Sensitivity 12.4 pg/ml (0-14)
[2023-02-01] MEDS: HEPARIN SODIUM/DEXTROSE 25,000 UNITS/500 ML BAG IV SCH (05:43)
--- NOTE | 2023-02-01 05:46 | Electrocardiogram Report ---
Test Reason : Blood Pressure : / mmHG Vent. Rate : 103 BPM Atrial Rate : 103 BPM P-R Int : 130 ms QRS Dur : 066 ms QT Int : 334 ms P-R-T Axes : 058 021 045 degrees QTc Int : 437 ms Sinus tachycardia Low voltage QRS Cannot rule out Anterior infarct , age undetermined Abnormal ECG No previous ECGs available Confirmed by Indio Dupree ([id number]) on 02/01/2023 5:46:03 AM Referred By: REFERRED SELF Confirmed By:Indio Dupree
[2023-02-01 05:57] LABS: Partial Thromboplastin Ratio 3.4
[2023-02-01 06:18] LABS: Partial Thromboplastin Time 96.4 Seconds (21.0-31.0)
--- NOTE | 2023-02-01 07:34 | XRay Report ---
XR chest 1V portable HISTORY: 72 years-old Female f/u u acute shortness of breath with right lung opacities COMPARISON: 01/31/2023 TECHNIQUE: AP view of the chest FINDINGS: Cardiomediastinal and hilar silhouettes are unchanged. Extensive airspace consolidation throughout th e right lung again noted with small moderate right and trace left pleural effusions. Mild left basila r consolidation. No pneumothorax. The bones appear grossly intact. IMPRESSION: 1. Extensive airspace opacities throughout the right lung are similar to prior. 2. Small to moderate right and trace left pleural effusions. 3. Mild left basilar opacities suggestive of atelectasis versus pneumonitis. 4. No pneumothorax. ACT 112: Negative or not required by law. The above report was generated using voice recognition software. It may contain grammatical, syntax o r spelling errors. Electronically signed by: Stepan Fernando M.D. 02/01/2023 7:33 AM
[2023-02-01] MEDS: ICU Protocol for HYPERglycemia SCH ×4 (07:48→21:16)
[2023-02-01] MEDS: INSULIN ASPART PER UNIT CHARGE SC SCH ×4 (07:48→21:15)
[2023-02-01] MEDS: MAGNESIUM SULFATE / D5W 1 GM/100 ML BAG IV SCH ×2 (07:48→09:30)
--- NOTE | 2023-02-01 08:03 | Hospitalist Progress Note ---
Date of Service February 01, 2023 Assessment & Plan (1) Shortness of breath: (2) Pleural effusion on right: (3) DVT (deep venous thrombosis): (4) Chest wall mass: (5) Pulmonary emboli: (6) Elevated troponin: (7) Constipation: Plan Patient is a 72 year old woman who does not regularly see a physician presented with chest mass and SOB, biopsy results showed Aristeo's lymphoma. Plan to transfer to [facility] tonight or tomorrow. 1) Shortness of breath - Hypoxic Respiratory Failure from pleural effusion: approx 1 month duration, progressive. CXR and Chest CT on admission show significant right sided pleural effusion with left shift of mediastinal structures. Per radiology, effusion likely malignancy-related. CT also showed right chest wall mass, several left sided PEs, and significant pathologic lymphadenopathy. Per radiology, lymphoma most likely but mets from other primary cancer vs mesothelioma cannot be ruled out. -Heparin drip -US guided biopsy done 01/31, results pending -Pulmonology consulted, thoracentesis done 01/31, yielded 2L fluid - CXR post-procedure: Residual right pleural effusion with consolidation/opacification at the right lung base -Repeat CXR 01/31: increasing opacification throughout the right lung, likely representing reexpansion edema Pneumonia vs Re-expansion pulmonary edema: Worsening respiratory distress after thoracentesis, oxygen requirement up to 15L by oxymask to maintain sats>90. WBC 01/31 22.89 -1 time dose of 20mg Lasix given -Pt transferred to ICU -Per ICU, Patient responded to one-time dose of 20 mg IV Lasix and temporary CPAP. She did well throughout the night and continue to diurese appropriately. She is now down to 2 L oxy mask at this time and doing well. -Unasyn started for elevated white count -Daily CXR: 02/01 Extensive airspace consolidation throughout the right lung again noted with small moderate right and trace left pleural effusions. Mild left basilar consolidation. No pneumothorax. Unidentified malignancy: Underlying cause of mass and effusion. -Pleural fluid cytology results: exudative, showed large number of atypical monocytes. -Biopsy results pending -Heme/onc consulted. Per Dr. Astudillo, preliminary results suggest Aristeo's lymphoma, waiting on final pathology results. Recommend: -Solu-medrol started -Sliding scale insulin initiated -Maintenance IVF for nephroprotection -Allopurinol 300mg daily for protection against tumor lysis syndrome -PICC line started -Recommend transfer to tertiary facility for treatment 2) Pleural effusion on right: per radiology, likely malignancy related -Pulm consulted, thoracentesis performed -See above 3) DVT in left arm: Venous Doppler in ED showed extensive thrombus within the left internal jugular, subclavian, brachial and radial veins. -Heparin drip 4) Chest wall mass: noted on physical exam, CXR, and CT. Per radiology, likely malignant. -IR biopsy done 01/31, results pending -See above 5) Pulmonary emboli: Left sided pulmonary emboli noted on CT -Heparin drip -Oxygen as above 6) Elevated troponin: Resolved. Patient had slightly elevated troponin (15.4) in ED. Demand ischemia vs PE vs [place]. EKG showed sinus tach with low voltage QRS but could not rule out anterior infarct of any age. -Repeat trops 17.7, 9.8, 12.4 7) Elevated white count: Yesterday afternoon (01/31) patient's white count was 22. This has improved on repeat labs 02/01 to 11.2 -Unasyn started 01/31 -Repeat labs in AM 8) Hypophosphatemia/Hypomagnesemia: -Patient being repleted 9) Constipation: Patient has not had a "normal" bowel movement in 2 weeks. Reports small volumes of loose stool consistent with overflow. Constipation vs obstruction. No abdominal pain or distension is reassuring for obstruction, but given patient's family history of colon cancer, lack of prior colonoscopies, and current unidentified malignancy, concern remains. -Miralax ordered -Recommend outpatient colonoscopy Code Status: DNR. Intubate and vent ONLY Admission and Anticipated Discharge Date Admission Date: January 30, 2023 Subjective Post-procedure yesterday Mary began to have a higher oxygen demand (15L nasal cannula) and new cough. Repeat CXR showed mostly clear left lung, right lung re- expansion edema. Mary was transferred to the ICU for more intensive supportive care. This morning she is feeling improved from yesterday. She feels that the swelling in her arm has gone down somewhat, and says it is easier to breathe. Physical Exam Physical Exam: Constitutional: WD/WN, vitals as above + thin; no acute distress Respiratory: good respiratory effort, significantly decreased breath sounds in right lung Cardiovascular: RRR, no murmur, no pedal edema. Distal pulses present, weak on left arm, strong in LLs and right arm Skin: no rashes, warm and dry. firm mass palpable on right upper chest wall Extremities: Left arm edematous compared to right arm, slightly reduced from yesterday. Results & Data Results & Data Vital Signs (Past 12 Hours) Vital Signs Temp Pulse Resp BP Pulse Ox O2 Del Method O2 Flow Rate 02/01/23 06:00 85 30 H 94/59 L 95 Oxymask 4 02/01/23 05:00 88 24 109/64 94 Oxymask 4 02/01/23 04:00 36.5 C 86 20 95/62 L 93 Oxymask 4 02/01/23 03:00 91 H 21 89/59 L 95 Oxymask 4 02/01/23 02:00 93 H 21 92/62 L 95 Oxymask 4 02/01/23 01:00 88 22 106/66 97 Oxymask 4 02/01/23 00:00 36.5 C 102 H 23 90/62 L 95 Oxymask 4 01/31/23 23:00 105 H 28 H 106/66 96 Oxymask 6 01/31/23 22:00 112 H 34 H 106/68 95 Oxymask 6 01/31/23 21:00 109 H 34 H 98/64 L 95 Oxymask 6 (3) DVT (deep venous thrombosis) Affected thrombotic vein of extremity: unspecified vein of extremity Chronicity: unspecified DVT location: upper extremity Laterality: left Qualified Code(s): I82.622 - Acute embolism and thrombosis of deep veins of left upper extremity (5) Pulmonary emboli Pulmonary embolism type: multiple subsegmental (without acute cor pulmonale) Qualified Code(s): I26.94 - Multiple subsegmental pulmonary emboli without acute cor pulmonale
--- NOTE | 2023-02-01 09:00 | Critical Care Progress Note ---
Date of Service February 01, 2023 Assessment & Plan (1) Pleural effusion on right: (2) Shortness of breath: (3) Pulmonary emboli: (4) DVT (deep venous thrombosis): (5) Chest wall mass: Plan IMPRESSION: 72-year-old female presenting to the emergency department with shortness of breath and hypoxia requiring 2 L nasal cannula who was found to have a large RIGHT-sided pleural effusion with concerns for infiltrative RIGHT- sided chest wall mass, pulmonary emboli, and extensive LEFT upper extremity DVT. Patient underwent biopsy of RIGHT-sided axillary node as well as thoracentesis yesterday. Pathology is pending at this time. RECOMMENDATIONS: 1. RIGHT-sided pleural effusion - Concerning for malignant pleural effusion in the setting of new RIGHT-sided chest wall mass. With compression of the RIGHT- sided lung and associated shortness of breath. Patient continues to require only 2 L NC at this time. Thoracentesis today after core biopsy of supraclavicular node. She will need to be off of the heparin drip for 2 hours prior to intervention. This was discussed with primary RN. Heparin gtt to be off at 0800. There may be benefit to Pleurx catheter in the patient's future depending on reaccumulation after thoracentesis. This will be reviewed with the patient is a later time pending responsiveness to thoracentesis. 2. Reexpansion pulmonary edema -patient had an episode of acute dyspnea and increasing oxygen requirement. She responded to one-time dose of 20 mg IV Lasix and temporary CPAP. She did well throughout the night and continue to diurese appropriately. She is now down to 2 L oxy mask at this time and doing well. 3. Shortness of breath - Likely multifactorial related to the patient's large RIGHT-sided pleural effusion as well as associated LEFT-sided pulmonary emboli. Again, thankfully, the patient is not severely symptomatic at this point. In itially had improvement with thoracentesis prior to reexpansion pulmonary edema. 4. Pulmonary emboli - Difficult to assess the RIGHT-sided lung structure secondary to large effusion. Small subsegmental PEs appreciated in the LEFT- sided lung field. CT evaluation demonstrates concerns for possible cardiac strain. Agree with heparin drip at this time. Echo with slight elevation of RIGHT sided pressures (PASP 35 mmHg). Otherwise, unremarkable echo. 5. DVT - Patient with extensive DVT of the LEFT upper extremity. Likely related to the patient's underlying coagulopathy with presumed malignancy. Continue with Heparin gtt for now. Patient can transition to DOAC. 6. Chest wall mass - With infiltrative component to the RIGHT-sided anterior chest wall. Lymph node biopsy and pleural fluid pathology pending. Appreciate oncology evaluation. We will await pathology for further guidance from oncology and likely radiation oncology. Appreciate palliative care evaluation in this socially complex female. Thank you for allowing us to participate in the care of this patient. We will continue to follow along during her hospitalization. Patient is stable for downgrade from ICU at this point. Admission and Anticipated Discharge Date Admission Date: January 30, 2023 Supervising Physician Co-Signing Physician Notes Patient seen and examined. Agree with below assessment and plan. Upgraded overnight for worsening hypoxemic respiratory failure, required bipap. Diuresed well this am. Back on 4L nc oxygen. CXR with persistent right sided vascular congestion and residual pleural effusion. Pathologies pending from lymph noted biospy and thoracentsis from 02/01/2023. Tolerating heparin gtt for RUE DVT, scattered PEs secondary to her undefined malignancy. Plan: -- Continue oxygen support, continue heparin gtt -- Follow pathology -- Daily CXR, likely will need PleurX depending on symptoms and rate of re- accumulation. If PleurX in, would switch to DOAC and follow up with oncology. Subjective Patient was seen and evaluated this morning. Patient did go into respiratory distress last evening likely related to reexpansion pulmonary edema. She responded to IV Lasix and brief stent on BiPAP. She reports feeling much better with her breathing at this time. She offers no complaints of pain. She is eating her breakfast without issue. Review of Systems Review of Systems: Unchanged Physical Exam Physical Exam: VITAL SIGNS - Vital signs and nursing notes were reviewed. GENERAL - 72-year-old female appearing her stated age who is in no acute distress. Communicates well with provider and answers questions appropriately. LUNGS - Chest wall evaluation demonstrates a large, ~8cm mass to the RIGHT upper chest wall. Nontender to palpation. Nonmobile. No erythema or induration noted. Auscultation reveals absent breath sounds on the RIGHT with clear breath sounds without wheezes, rales, or rhonchi appreciated on the LEFT. CARDIAC - RRR with S1/S2. No murmur, rubs, or gallops appreciated. ABDOMEN - Abdominal inspection demonstrates a flat abdomen. BS normoactive all four quadrants. No tenderness, palpable masses, or ascites noted. EXTREMITIES - Moderate edema noted to the LEFT upper extremity. No peripheral cyanosis. No pretibial edema present. +3/5 radial palpated throughout. PSYCH - A&Ox3 and cooperates fully with examiner. Pt is very pleasant and interacts well with examiner. Results & Data Results & Data Vital Signs (Past 12 Hours) Vital Signs Temp Pulse Resp BP BP Pulse Ox O2 Del Method 02/01/23 08:26 111 H 36 H 92 02/01/23 08:28 93/59 L 02/01/23 08:00 109 H 30 H 93 02/01/23 07:00 87 31 H 94 02/01/23 08:00 Oxymask 02/01/23 08:00 36.7 C 02/01/23 06:00 85 30 H 94/59 L 95 Oxymask 02/01/23 05:00 88 24 109/64 94 Oxymask 02/01/23 04:00 36.5 C 86 20 95/62 L 93 Oxymask 02/01/23 03:00 91 H 21 89/59 L 95 Oxymask 02/01/23 02:00 93 H 21 92/62 L 95 Oxymask 02/01/23 01:00 88 22 106/66 97 Oxymask 02/01/23 00:00 36.5 C 102 H 23 90/62 L 95 Oxymask 01/31/23 23:00 105 H 28 H 106/66 96 Oxymask 01/31/23 22:00 112 H 34 H 106/68 95 Oxymask O2 Flow Rate 02/01/23 08:26 02/01/23 08:28 02/01/23 08:00 02/01/23 07:00 02/01/23 08:00 4 02/01/23 08:00 02/01/23 06:00 4 02/01/23 05:00 4 02/01/23 04:00 4 02/01/23 03:00 4 02/01/23 02:00 4 02/01/23 01:00 4 02/01/23 00:00 4 01/31/23 23:00 6 01/31/23 22:00 6 Coding Level of Care Code 83185 SUB INP/OBS CARE 3/50MIN Diagnoses Pleural effusion on right J90 Shortness of breath R06.02 Pulmonary emboli I26.94 Pulmonary embolism type: multiple subsegmental (without acute cor pulmonale) DVT (deep venous thrombosis) I82.622 Affected thrombotic vein of extremity: unspecified vein of extremity Chronicity: unspecified DVT location: upper extremity Laterality: left Chest wall mass R22.2 (3) Pulmonary emboli Pulmonary embolism type: multiple subsegmental (without acute cor pulmonale) Qualified Code(s): I26.94 - Multiple subsegmental pulmonary emboli without acute cor pulmonale (4) DVT (deep venous thrombosis) Affected thrombotic vein of extremity: unspecified vein of extremity Chronicity: unspecified DVT location: upper extremity Laterality: left Qualified Code(s): I82.622 - Acute embolism and thrombosis of deep veins of left upper extremity
[2023-02-01] MEDS ORDERED: POTASSIUM CHLORIDE / WTR 10 MEQ/100 ML PLCT IV SCH (09:45)
[2023-02-01] MEDS ORDERED: POTASSIUM CHLORIDE CRTAB 20 MEQ TABCR PO SCH (09:45)
[2023-02-01] MEDS: ICU ELECTROLYTE REPLACEMENT PROTOCOL SCH ×2 (10:19→17:37)
[2023-02-01] MEDS: POTASSIUM CHLORIDE CRTAB 20 MEQ TABCR PO SCH ×2 (10:52→14:52)
[2023-02-01] MEDS: POT PHOSPHATE MONOBASIC W/ SOD TAB PO SCH ×3 (11:38→21:16)
[2023-02-01] MEDS ORDERED: methylPREDNISolone 125 MG in SYRINGE 0 ML IV ONE (13:00)
[2023-02-01] MEDS ORDERED: RAPID SEQUENCE INDUCTION BAG ONE (13:11)
[2023-02-01 13:13] LABS: Partial Thromboplastin Ratio 1.2; Partial Thromboplastin Time 34.2 Seconds (21.0-31.0)
[2023-02-01] MEDS: LACTATED RINGER'S 1,000 ML IV SCH (13:59)
[2023-02-01] MEDS ORDERED: HEPARIN SOD (PORCINE) 1000 UNIT/ML IV ONE (14:00)
[2023-02-01] MEDS: allopurinoL 300 MG TAB PO SCH (14:52)
--- NOTE | 2023-02-01 18:05 | Discharge Summary ---
Date of Service February 01, 2023 Admission HPI Per Admitting Provider Mary is a 72 year old woman without regular medical care who presented to the ED last night with concerns of shortness of breath and left arm swelling. She first noticed the shortness of breath several weeks ago in association with a new mass/swelling on her right anterior chest. Her shortness of breath worsened over the last few weeks. On Sunday she first noticed left arm and hand swelling. After two days of persistent swelling and worsening shortness of breath, she came to the ED. The shortness of breath is worst with activity. It is not associated with any chest pain, chest pressure. The mass on her chest is not painful. She thinks that it has been increasing in size, but she is not sure. The swelling of her left arm and hand is only painful when she moves or bends it. She has not had any fevers, aches, or chills. She has had recent unintentional weight loss. She is unsure how much weight as she has not weighed herself, but she did notice her clothes have become too loose. She has had poor appetite. She has not had a "normal" bowel movement in close to two weeks. She describes occasional small amounts of loose stool, but no large volumes. She has a remote smoking history (quit 15-20 years ago) of <1/2 a pack per day. She has no known health conditions and takes no medications aside from vitamin D and fish oil supplements, but says that she does not regularly see any doctors and cannot remember the last time she received any medical treatment. She has never been treated by the ED or been hospitalized before. She has a relevant family history of colon cancer in her sister, diagnosed at age 65. She has never had a colonoscopy. Principal Diagnosis lymphoma Discharge Exam in general she is awake and alert mildly anxious but otherwise no distress. Breathing unlabored but she is mildly tachypneic on 4 L oxy mask. No focal neurodeficits. 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 Discharge Data Allergies Allergy/AdvReac Type Severity Reaction Status Date / Time No Known Allergies Allergy Unverified 01/31/23 16:38 Consultations 01/30/23 07:01 ED Decision to Admit Stat 01/30/23 09:07 Consult Pulmonology Routine 01/30/23 14:58 Consult Hematology Routine 01/31/23 16:01 Consult Dog And Cat [employer] Cook Routine 02/01/23 08:20 Consult Palliative Care Routine Ordered Studies 01/30/23 04:38 CT angio chest PE protocol Stat US arterial duplex UE LT Stat 01/31/23 12:05 IR biopsy lymph US Routine Hospital Course (1) Chest wall mass: Plan Patient is a 72 year old woman who does not regularly see a physician presented with chest mass and SOB, biopsy results showed Aristeo's lymphoma. [place] [facility] [place]. 1) Shortness of breath - Hypoxic Respiratory Failure from pleural effusion: approx 1 month duration, progressive. CXR and Chest CT on admission show significant right sided pleural effusion with left shift of mediastinal structures. Per radiology, effusion likely malignancy-related. CT also showed right chest wall mass, several left sided PEs, and significant pathologic lymphadenopathy. Per radiology, lymphoma most likely but mets from other primary cancer vs mesothelioma cannot be ruled out. -Heparin drip -US guided biopsy done 01/31, results pending -Pulmonology consulted, thoracentesis done 01/31, yielded 2L fluid - Full pathology not yet reported, but in discussion with oncology, either a Burkitt lymphoma or another aggressive lymphomafor transfer to tertiary care Pneumonia vs Re-expansion pulmonary edema: Worsening respiratory distress after thoracentesis, oxygen requirement up to 15L by oxymask to maintain sats>90. WBC 01/31 22.89 -1 time dose of 20mg Lasix given -Pt transferred to ICU -Per ICU, Patient responded to one-time dose of 20 mg IV Lasix and temporary CPAP. She did well throughout the night and continue to diurese appropriately. She is now down to 2 L oxy mask at this time and doing well. -Unasyn started for elevated white count -Daily CXR: 02/01 Extensive airspace consolidation throughout the right lung again noted with small moderate right and trace left pleural effusions. Mild left basilar consolidation. No pneumothorax. Unidentified malignancy: Underlying cause of mass and effusion. -Pleural fluid cytology results: exudative, showed large number of atypical monocytes. -Biopsy results pending -Heme/onc consulted. Per Dr. Astudillo, preliminary results suggest Aristeo's lymphoma or other similar pathology. Recommend: -Solu-medrol started -Sliding scale insulin initiated -Maintenance IVF for nephroprotection -Allopurinol 300mg daily for protection against tumor lysis syndrome -PICC line started -Recommend transfer to tertiary facility for treatment 2) Pleural effusion on right: per radiology, likely malignancy related -Pulm consulted, thoracentesis performed -See above 3) DVT in left arm: Venous Doppler in ED showed extensive thrombus within the left internal jugular, subclavian, brachial and radial veins. -Heparin drip 4) Chest wall mass: noted on physical exam, CXR, and CT. Per radiology, likely malignant. -IR biopsy done 01/31, results pending -See above 5) Pulmonary emboli: Left sided pulmonary emboli noted on CT -Heparin drip -Oxygen as above 6) Elevated troponin: Resolved. Patient had slightly elevated troponin (15.4) in ED. Demand ischemia vs PE vs [place]. EKG showed sinus tach with low voltage QRS but could not rule out anterior infarct of any age. -Repeat trops 17.7, 9.8, 12.4 7) Elevated white count: Yesterday afternoon (01/31) patient's white count was 22. This has improved on repeat labs 02/01 to 11.2 -Unasyn started 01/31 -Repeat labs in AM 8) Hypophosphatemia/Hypomagnesemia: -Patient being repleted 9) Constipation: Patient has not had a "normal" bowel movement in 2 weeks. Reports small volumes of loose stool consistent with overflow. Constipation vs obstruction. No abdominal pain or distension is reassuring for obstruction, but given patient's family history of colon cancer, lack of prior colonoscopies, and current unidentified malignancy, concern remains. -Miralax ordered -Recommend outpatient colonoscopy Code Status: DNR. Intubate and vent ONLY Total Time Total Time Spent Total Time Spent (In Minutes): greater than 30 Discharge Plan Discharge Items Patient Disposition: Transfer Acute Care Hospital Reason For Visit: SOB, RIGHT ANTERIOR CHEST WALL MASS, LEFT ARM SWEL Discharge Diagnosis: acute lymphoma Activity: Resume your previous activity Non-emergency contact: Primary Care Provider and Oncologist Call non-emergency contact if: you have any medication questions and your symptoms worsen Follow-up/Referrals: PCP,NO [Primary Care Provider] - Diet: Regular Addtl Attending Provider Instructions: per stan Pending Studies at Discharge: Yes (full pathology on biopsies) Stand-Alone Forms: [facility] Skilled Items Patient informed of condition?: Yes DNR: No Discharge Level of Care: Other Communicable Disease: No Discharge Prognosis: Other Lines: PICC Urinary Catheter: No Medications and DC Order Prescriptions: No Action No Known Home Medications Discharge Orders: Discharge Order (Routine); Ordered 02/01/23 Ordered By: Abdullahi Lea/Other Patient Handouts: A1C Admission Data Admit Date/Time: 01/30/23 09:02 Attending Provider: Abdullahi Jones Admit Provider: Waldo Leong Primary Care Provider: PCP,NO Other Providers: Robbie Colby ; David Madsen ; Lucas Romero ; Travis Corley ; Andrea Arenas ; Zunilda Calvert ; Sona Rico ; Maycol Hinson ; Maritza Langley ; Meaghan Freeman ; Valentina Rosas ; Eder Chung ; Amber Owen ; Rohini Chen ; Nicky Rapp ; José Antonio Martinez ; Zachery Fernandez ; Grace Enamorado ; LinneaP,No Attending ; Laz Antoine ; Charlie Newell ; Helder Pena ; Corine Bernal Coding Level of Care Code 55459 INP/OBS DISCH >30 MIN Diagnoses Chest wall mass R22.2
[2023-02-01 21:11] LABS: Uric Acid 7.3 mg/dl (2.6-7.2)
[2023-02-01 21:40] LABS: Partial Thromboplastin Time 56.3 Seconds (21.0-31.0)
[2023-02-02] MEDS: LACTATED RINGER'S 1,000 ML IV SCH (03:18)
[2023-02-02] MEDS: AMPICILLIN/SULBACTAM SOD 3,000 MG in 0.9 % SODIUM CHLORIDE 100 ML IV SCH (04:47)
[2023-02-02 05:13] LABS: Hematocrit (blood only) 31.8 % (37.0-47.0); Hemoglobin 9.9 g/dl (12.0-16.0); Mean Corpuscular Hemoglobin 22.9 pg (25.0-34.0); Mean Corpuscular Hgb Conc 31.1 g/dL (32.0-36.0); Mean Corpuscular Volume 73.6 fL (80.0-100.0); Mean Platelet Volume 10.2 fL (9.4-12.4); Platelet Count 251 K/uL (130-400); RDW Coefficient of Variation 16.6 % (11.5-14.5); RDW Standard Deviation 43.3 fL (36.4-46.3); Red Blood Count 4.32 M/uL (4.20-5.40); White Blood Count 8.02 K/ul (4.8-10.8)
[2023-02-02 05:43] LABS: BUN Creatinine Ratio 26.7 (10-20); Calcium 8.2 mg/dl (8.6-10.3); Est GFR (African American) 117.7 ml/min; Est GFR (Non-African American) 101.5 ml/min; Potassium 4.2 mmol/L (3.5-5.1)
[2023-02-02 05:50] LABS: Acanthocytes 2+; Basophils # (auto) 0.01 K/uL (0-0.2); Basophils % (auto) 0.1 %; Immature Granulocytes # (auto) 0.04 K/uL (0.01-0.20); Immature Granulocytes % (auto) 0.5 %; Lymphocytes # (auto) 0.28 K/uL (1.2-3.4); Lymphocytes % (auto) 3.5 %; Monocytes # (auto) 0.23 K/uL (0.11-0.59); Monocytes % (auto) 2.9 %; Neutrophils # (auto) 7.46 K/uL (1.40-6.50); Polychromasia 1+
--- NOTE | 2023-02-02 05:50 | Hospitalist Progress Note ---
Date of Service February 02, 2023 Assessment & Plan (1) Pulmonary emboli: Plan: Back on heparin without gross GI bleeding but we do see some fall in the hemoglobin. Need to monitor for any signs of intra-abdominal bleeding and as well could have bleeding into the right thoracic cavity that she may not show outward signs. Anticipate transfer to a tertiary institution where she might have more ready access to IVC filter should any severe bleeding emerge. Maintain on heparin with close monitoring of PTT (2) Chest wall mass: Plan: Pathology shows an aggressive lymphoproliferative process. Though this does not seem to have precise characteristic of Burkitt's lymphoma, it is certainly on the more aggressive spectrum with clinical presentation and with provisional "starry mindy" like appearance by H&E. Uric acid is only moderately elevated, LDH is elevated, overall continues have a very challenging situation but with high- grade lymphoma there is some opportunity for chemotherapy response and perhaps disease stabilization. Managing the side effects of chemotherapy in a patient with already poor performance status, nutritional depletion, and concomitant challenges of DVT with the potential for serious bleeding where chemotherapy may segue into a risk for serious tumor lysis syndrome represent a significant chasllenge. She will be much better served in a quaternary setting where there a re 24-hour staff at all levels highly skilled and familiar with how to address these challenges. Would continue on allopurinol and hydration and even in the absence of the initiation of chemotherapy watch for spontaneous tumor lysis. Did receive a dose of Solu-Medrol 125 mg IV yesterday. If transfer is not imminent today would repeat that dose (3) Anemia: Plan: Hemoglobin has been relatively steady but its decline may represent in part some hemodilution with more aggressive hydration but also has to raise some concerns over either nutritional depletion and/or occult bleeding. We will need to screen for the former and watch closely for the latter. Plan Plan for transfer to [facility]. Anemia work-up is pending Continue fluids and allopurinol with periodic reassessment for uric acid and electrolyte stability if she is not quickly transferred Consider repeating steroid dose if not quickly transferred Admission and Anticipated Discharge Date Admission Date: January 30, 2023 Subjective Patient seems only mildly uncomfortable, somewhat anxious about her diagnosis and impending transfer. She remains alert and appropriate Physical Exam Physical Exam: Afebrile with stable vital signs. Anterior chest wall mass is unchanged, marked decreased breath sounds on the right side but still not using accessory muscles and not excessively tachypneic. Abdomen remains benign Results & Data Results & Data Vital Signs (Past 12 Hours) Vital Signs Temp Pulse Resp BP Pulse Ox O2 Del Method O2 Flow Rate 02/02/23 01:05 86 02/02/23 03:21 36.5 C 02/02/23 01:00 87 34 H 97/51 L 94 02/02/23 00:00 93 H 34 H 101/61 93 02/01/23 23:38 98 H 40 H 103/50 L 91 02/01/23 23:00 102 H 45 H 92 02/01/23 23:37 36.7 C 02/01/23 21:00 Oxymask 2 02/01/23 22:58 Oxymask 2 02/01/23 22:00 115 H 46 H 92 02/01/23 20:02 115 H 35 H 114/69 92 02/01/23 21:41 36.7 C 02/01/23 18:00 99 H 32 H 92 Laboratory Results Laboratory Results - last 24 hr 01/31/23 01/31/23 01/31/23 Unknown Unknown Unknown WBC RBC Hgb Hct MCV MCH MCHC RDW Std Deviation RDW Coeff of Regina Plt Count MPV Immature Gran % (Auto) Neut % (Auto) Lymph % (Auto) [place] % (Auto) Eos % (Auto) Baso % (Auto) Neut # (Auto) Lymph # (Auto) [place] # (Auto) Eos # (Auto) Baso # (Auto) Immature Gran # (Auto) Polychromasia Acanthocytes (Spur) APTT PTT Ratio Sodium Potassium Chloride Carbon Dioxide Anion Gap BUN Creatinine Est Cr Clr Drug Dosing Est GFR ( Amer) Est GFR (Non-Af Amer) BUN/Creatinine Ratio Glucose POC Glucose Uric Acid Calcium Phosphorus Magnesium Lactate Dehydrogenase Fluid Slide Review High Grade B-Cell Lym Pending Flow Cytometry Comment Pending Pending Misc Genetic Test Pending 02/01/23 02/01/23 02/01/23 05:03 07:45 11:28 WBC RBC Hgb Hct MCV MCH MCHC RDW Std Deviation RDW Coeff of Regina Plt Count MPV Immature Gran % (Auto) Neut % (Auto) Lymph % (Auto) [place] % (Auto) Eos % (Auto) Baso % (Auto) Neut # (Auto) Lymph # (Auto) [place] # (Auto) Eos # (Auto) Baso # (Auto) Immature Gran # (Auto) Polychromasia Acanthocytes (Spur) APTT 96.4 H* PTT Ratio 3.4 Sodium Potassium Chloride Carbon Dioxide Anion Gap BUN Creatinine Est Cr Clr Drug Dosing Est GFR ( Amer) Est GFR (Non-Af Amer) BUN/Creatinine Ratio Glucose POC Glucose 95 173 H Uric Acid Calcium Phosphorus Magnesium Lactate Dehydrogenase Fluid Slide Review High Grade B-Cell Lym Flow Cytometry Comment [facility] Genetic Test 02/01/23 02/01/23 02/01/23 12:14 16:09 19:55 WBC RBC Hgb Hct MCV MCH MCHC RDW Std Deviation RDW Coeff of Regina Plt Count MPV Immature Gran % (Auto) Neut % (Auto) Lymph % (Auto) [place] % (Auto) Eos % (Auto) Baso % (Auto) Neut # (Auto) Lymph # (Auto) [place] # (Auto) Eos # (Auto) Baso # (Auto) Immature Gran # (Auto) Polychromasia Acanthocytes (Spur) APTT 34.2 H 56.3 H* PTT Ratio 1.2 2.0 Sodium Potassium Chloride Carbon Dioxide Anion Gap BUN Creatinine Est Cr Clr Drug Dosing Est GFR ( Amer) Est GFR (Non-Af Amer) BUN/Creatinine Ratio Glucose POC Glucose 132 H Uric Acid Calcium Phosphorus Magnesium Lactate Dehydrogenase Fluid Slide Review High Grade B-Cell Lym Flow Cytometry Comment [facility] Genetic Test 02/01/23 02/01/23 02/02/23 19:55 20:47 04:22 WBC 8.02 RBC 4.32 Hgb 9.9 L Hct 31.8 L MCV 73.6 L MCH 22.9 L MCHC 31.1 L RDW Std Deviation 43.3 RDW Coeff of Regina 16.6 H Plt Count 251 MPV 10.2 Immature Gran % (Auto) 0.5 Neut % (Auto) 93.0 Lymph % (Auto) 3.5 [place] % (Auto) 2.9 Eos % (Auto) 0.0 Baso % (Auto) 0.1 Neut # (Auto) 7.46 H Lymph # (Auto) 0.28 L [place] # (Auto) 0.23 Eos # (Auto) 0.00 Baso # (Auto) 0.01 Immature Gran # (Auto) 0.04 Polychromasia 1+ Acanthocytes (Spur) 2+ APTT PTT Ratio Sodium Potassium Chloride Carbon Dioxide Anion Gap BUN Creatinine Est Cr Clr Drug Dosing Est GFR ( Amer) Est GFR (Non-Af Amer) BUN/Creatinine Ratio Glucose POC Glucose 249 H Uric Acid 7.3 H Calcium Phosphorus Magnesium Lactate Dehydrogenase 429 H Fluid Slide Review High Grade B-Cell Lym Flow Cytometry Comment Misc Genetic Test 02/02/23 02/02/23 04:22 04:22 WBC RBC Hgb Hct MCV MCH MCHC RDW Std Deviation RDW Coeff of Regina Plt Count MPV Immature Gran % (Auto) Neut % (Auto) Lymph % (Auto) [place] % (Auto) Eos % (Auto) Baso % (Auto) Neut # (Auto) Lymph # (Auto) [place] # (Auto) Eos # (Auto) Baso # (Auto) Immature Gran # (Auto) Polychromasia Acanthocytes (Spur) APTT Pending PTT Ratio Pending Sodium 139 Potassium 4.2 Chloride 104 Carbon Dioxide 29 Anion Gap 6 BUN 12 Creatinine 0.45 L Est Cr Clr Drug Dosing 92.0 Est GFR ( Amer) 117.7 Est GFR (Non-Af Amer) 101.5 BUN/Creatinine Ratio 26.7 H Glucose 142 H POC Glucose Uric Acid Calcium 8.2 L Phosphorus 2.0 L Magnesium 2.0 Lactate Dehydrogenase Fluid Slide Review High Grade B-Cell Lym Flow Cytometry Comment [facility] Genetic Test PG Care Time/CCT Total # of Minutes Spent Total Time Spent with Patient: Total time spent is greater than 50% in coordination of care (as documented) at patient's floor/unit and/or counseling patient: Coding Level of Care Code 29370 SUB INP/OBS CARE 2/35MIN Diagnoses Pulmonary emboli I26.94 Pulmonary embolism type: multiple subsegmental (without acute cor pulmonale) Chest wall mass R22.2 Anemia D64.9 (1) Pulmonary emboli Pulmonary embolism type: multiple subsegmental (without acute cor pulmonale) Qualified Code(s): I26.94 - Multiple subsegmental pulmonary emboli without acute cor pulmonale
[2023-02-02] MEDS ORDERED: POT PHOSPHATE MONOBASIC W/ SOD TAB PO SCH (06:00)
[2023-02-02 06:04] LABS: Partial Thromboplastin Ratio 1.6
[2023-02-02 06:33] LABS: Reticulocyte % 1.7 % (0.5-2.0); Reticulocytes # 0.07 10^6/uL (0.02-0.10)
[2023-02-02 06:46] LABS: Partial Thromboplastin Time 44.7 Seconds (21.0-31.0)
--- NOTE | 2023-02-02 07:02 | XRay Report ---
XR chest 1V portable CLINICAL HISTORY: Follow-up. COMPARISON STUDY: Chest CT January 30, 2023. Chest radiograph February 01, 2023. FINDINGS: There is no pneumothorax. Small to moderate right pleural effusion is similar to prior exam . Asymmetric airspace opacities and interstitial thickening within the right lung persist. There are mild left basilar opacities. Cardiomediastinal silhouette is stable. A right PICC is in place. Tip pr ojects over the right atrium. IMPRESSION: 1. No significant change in a small to moderate right pleural effusion with asymmetric interstitial t hickening and airspace opacities within the right lung. 2. No pneumothorax. ACT 112: Negative or not required by law. Electronically signed by: Mahendra Borjas M.D. 02/02/2023 7:00 AM
[2023-02-02 07:12] LABS: Folate (Folic Acid),Ser orPlas 6.16 ng/ml (>5.38)
[2023-02-02 07:17] LABS: Ferritin 52.4 ng/ml (8-388)
[2023-02-02] MEDS: INSULIN ASPART PER UNIT CHARGE SC SCH (07:50)
[2023-02-02] MEDS: allopurinoL 300 MG TAB PO SCH (07:54)
[2023-02-02] MEDS: ICU ELECTROLYTE REPLACEMENT PROTOCOL SCH (09:05)
[2023-02-02] MEDS: ICU Protocol for HYPERglycemia SCH (09:05)
--- NOTE | 2023-02-02 10:09 | Palliative Care Consultation ---
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 I have contacted Dr Ruth Cherry, System Chief/Palliative Medicine at [facility] and transferred pall med consult reccs to her and the team at [facility], they will see her today after she settles in. I can accept pt back if/when she transitions back for care locally. I have provided [facility] Pall Med/Dr Cherry with patient case summary. (2) Dyspnea and respiratory abnormalities: (3) Palliative care by specialist: History of Present Illness Attending Physician: Abdullahi Jones DO Allergies Allergy/AdvReac Type Severity Reaction Status Date / Time No Known Allergies Allergy Unverified 01/31/23 16:38 Home Medications Medication Instructions Recorded Confirmed Type No Known Home Medications 01/30/23 01/30/23 History Patient History Medical History (Updated 02/02/23 @ 10:07 by Corine Bernal DNP) Pleural effusion on right Family History Sister Cancer Social History Smoking Status: Former smoker Hx Alcohol Use: Yes Hx Substance Use: No Preferred Language: [place]ian Communication Ability: Effective 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 Beliefs That Will Affect Care: None Current Living Situation: Alone Feels Safe at Home: Yes Assistive Devices: None Results & Data Vital Signs (Past 12 Hours) Vital Signs Temp Pulse Resp BP Pulse Ox O2 Del Method O2 Flow Rate 02/02/23 08:05 111/41 L 02/02/23 08:05 113 H 25 H 91 02/02/23 08:00 115 H 25 H 91 02/02/23 07:00 81 28 H 91 02/02/23 07:00 99/63 L 02/02/23 08:16 79 02/02/23 08:13 36.5 C 02/02/23 07:58 Oxymask 2.5 02/02/23 06:00 77 24 89/61 L 92 02/02/23 05:00 91 H 26 H 93/49 L 89 L 02/02/23 04:00 83 32 H 101/61 93 02/02/23 03:00 82 30 H 98/62 L 93 02/02/23 02:00 85 34 H 96/60 L 95 02/02/23 01:05 86 02/02/23 03:21 36.5 C 02/02/23 01:00 87 34 H 97/51 L 94 02/02/23 00:00 93 H 34 H 101/61 93 02/01/23 23:38 98 H 40 H 103/50 L 91 02/01/23 23:00 102 H 45 H 92 02/01/23 23:37 36.7 C 02/01/23 22:58 Oxymask 2 PG Care Time/CCT Total # of Minutes Spent Total Time Spent with Patient: Total time spent is greater than 50% in coordination of care (as documented) at patient's floor/unit and/or counseling patient: Coding Level of Care Code None Diagnoses Burkitt lymphoma C83.70 Dyspnea and respiratory abnormalities R06.00; R06.89 Palliative care by specialist Z51.5
--- NOTE | 2023-02-02 17:16 | Communication Note ---
Date of Service: February 02, 2023 I was informed that patient was to be for transport last night. Paperwork completed, discharge summary completed. This morning she had not yet left [facility], but left fairly earlybefore I was able to see her. On chart review appeared to be in similar situation to last night. Had a known that she was not leaving through the night, certainly would have redosed steroids, but by the time I was aware that she had not left but was leaving imminently, it was too late to repeat dosing,
--- NOTE | 2023-02-02 19:51 | Electrocardiogram Report ---
Test Reason : Blood Pressure : / mmHG Vent. Rate : 113 BPM Atrial Rate : 113 BPM P-R Int : 128 ms QRS Dur : 068 ms QT Int : 318 ms P-R-T Axes : 060 035 043 degrees QTc Int : 436 ms Sinus tachycardia Low voltage QRS Cannot rule out Anterior infarct (cited on or before 30-JAN-2023) Abnormal ECG When compared with ECG of 30-JAN-2023 04:57, Questionable change in initial forces of Anterior leads Confirmed by Indio Dupree ([id number]) on 02/02/2023 7:51:01 PM Referred By: REFERRED SELF Confirmed By:Indio Dupree
== END 2023-02-02 09:06 | disposition short-term general hospital (02) | DRG 840 ==
LOC: ED 04:07 → EDINP 09:02 → 2N 12:57 → 1E 01-31 16:24